=== PATIENT | female | born 1965 | race African-American/Black ===

== ENCOUNTER → 2018-08-25 11:09 | Outpatient (CLI) | payer OTHER, SELFPAY ==
[2018-08-25 11:20] LABS: Bacteria Urine None Seen; RBC Urine None Seen (0-5/HPF)
[2018-08-25 12:11] LABS: Appearance Urine UA CLEAR; Bilirubin Urine UA NEGATIVE (NEGATIVE); Color Urine UA YELLOW; Glucose Urine UA NEGATIVE (Negative); Ketones Urine UA NEGATIVE (NEGATIVE); Leukocyte Esterase Urine UA TRACE (NEGATIVE); Nitrite Urine UA NEGATIVE (Negative); Occult Blood Urine UA NEGATIVE (Negative); Protein Urine UA NEGATIVE (Negative); Specific Gravity Urine UA 1.015 (1.000-1.035); Urobilinogen Urine UA 0.2 E.U./dL (0.2); pH Urine UA 6.5 (4.5-8.0)
[2018-08-25 12:18] LABS: Add Manual Diff / Slide Review NO; Basophils Percent Auto 0.7 % (0-2); Eosinophils Percent Auto 1.8 % (2-4); Hematocrit 41.8 % (36-46); Hemoglobin 14.2 g/dL (12.0-16.0); Lymphocytes Percent Auto 48.9 % (25-40); Mean Corpuscular HGB Conc 33.9 % (30-36); Mean Corpuscular Hemoglobin 30.7 PG (26-34); Mean Corpuscular Volume 90.7 fL (80-100); Monocytes Percent Auto 8.3 % (3-14); Neutrophils Absolute Auto 2900 /uL (1500-7000); Neutrophils Percent Auto 40.3 % (50-75); Platelet Count 329 X10^3/uL (150-400); Red Blood Cell Count 4.61 X10^6/uL (4.0-5.2); Red Cell Distribution Width 14.4 % (11.6-14.8); White Blood Cell Count 7.2 X10^3/uL (4.5-11.0)
[2018-08-25 12:23] LABS: Culture Indicated Urine Cult Not Indicated; Squamous Epithelial Cell Urine 5-10 /HPF; WBC Urine 1-5/HPF (0-5/HPF)
[2018-08-25 12:39] LABS: BUN Creatinine Ratio 21.1 (6-22); Blood Urea Nitrogen 19 mg/dL (7-17); Calcium 9.7 mg/dL (8.4-10.2); Carbon Dioxide 28 mmol/L (22-32); Chloride 100 mmol/L (98-107); Estimated Glomerular Filt Rate > 60.0 mL/min (>60); Glucose 100 mg/dL (70-100); HEMOLYSIS < 15 (0-50); Hemoglobin A1C% w Est Avg Glu 5.9 % (4.0-6.0); Sodium 143 mmol/L (137-145)
[2018-08-25 13:03] LABS: Erythrocyte Sedimentation Rate 26 MM/HR (0-20)
== END ==
PROVIDERS: Family Provider Family Medicine; PCP Family Medicine; Visit Provider Orthopaedic Surgery
DX: Z01.818 Encounter for other preprocedural examination (principal); Z01.812 Encounter for preprocedural laboratory examination; N39.9 Disorder of urinary system, unspecified; Z13.1 Encounter for screening for diabetes mellitus
CPT/HCPCS: 36415; 80048; 81001; 83036; 85025; 85651; 86140; 93005

== ENCOUNTER 2018-10-04 11:20 | Inpatient (IN) | payer OTHER, SELFPAY ==
[2018-09-18 13:54] VITALS: BMI 33.3
[2018-10-04] VITALS (22 sets, daily range): BP systolic 92–124; BP diastolic 59–87; PULSE 65–115; RESP 11–24; TEMP 36.3–36.7; O2SAT 92–100; BMI 33.3
--- NOTE | 2018-10-04 06:00 | DI.RAD.S_ITS ---
PROCEDURE: XR KNEE RT 1TO2V INDICATIONS: prosthesis placement TECHNIQUE: 2 view(s) of the knee acquired. COMPARISON: None. FINDINGS: Bones: Patient is status post knee joint arthroplasty. Hardware components are in expected positions. Visualized bony structures are intact. Soft tissues: Overlying postoperative changes are noted. IMPRESSION: Normal postoperative alignment after right total knee arthroplasty. Surgical drain overlies the operative bed. Dictated by: Oleksandr Garcia M.D. on 10/04/2018 at 19:22 Approved by: Oleksandr Garcia M.D. on 10/04/2018 at 19:22
[2018-10-04] MEDS: LACTATED RINGERS 1,000 ML 42 ML IV ×2 (14:00→17:12)
[2018-10-04] MEDS: ACETAMINOPHEN 325 MG TABLET 975 MG PO (14:12)
[2018-10-04] MEDS: CELECOXIB 200 MG CAPSULE PO (14:12)
[2018-10-04] MEDS: PREGABALIN 75 MG CAPSULE PO (14:12)
[2018-10-04] MEDS: VANCOMYCIN 1,000 MG/200 ML FROZ.PIGGY 200 MG IV (14:21)
--- NOTE | 2018-10-04 15:15 | PM.PREOP ---
Pre-operative Note Interval Note History & Physical reviewed/Exam performed by Physician: Yes Changes to H&P: No
--- NOTE | 2018-10-04 15:19 | P.OP_ITS ---
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 Unfortunately she had some subsidence of her right tibia into varus and has had ongoing problems with instability. She is brought the operating room for revision right total knee arthroplasty with the plan for tibial revision and possible total knee revision. Surgeon: Tessie Interiano Quality Assurance Consultant: Selwyn Hartman Anesthesia Type: General and Spinal Operative Notes Findings: VARUS DEFORMITY OF THE MEDIAL COMPARTMENT WITH SOME MID FLEXION INSTABILITY, APPROXIMATELY 10? OF INTERNAL ROTATION of the tibial component, good stability and good fixation of the revision tibial component. Mild tibial medial compartment softening Closure Type: primary Specimen(s): other (Cultures) Prosthetic devices, grafts, tissues, transplants, or devices: Interiano and Nephew size 1 legion tibial base plate 10 x 160 legion cemented stem 12 mm poly Applied: drain(s) Estimated Blood Loss (mL): 300 Blood products transfused: none Tourniquet time (min): 80 Procedure in detail: The patient was seen in the pre-operative area, where the patient identified the right knee as the operative site and this was marked with my initials. The patient received pre-operative antibiotics, and was taken to the operating room and placed on the operative table in the supine position. After satisfactory anesthesia, a aircraft time clerk out was performed. The right leg was encircled with a tourniquet about the proximal thigh, and the leg was prepared from the toes to the tourniquet with ChloroPrep in the usual fashion and draped with sterile drapes. A midline incision was made dissection was carried out through skin and subcutaneous tissues. The patient's previous skin incision was used and extended some proximally and distally. Two Gelpi retractors were placed. Patient's previous medial parapatellar arthrotomy was opened after inflating the tourniquet to 250 mm of mercury. Patient had moderate dense adhesions in her knee especially in the suprapatellar pouch. The adhesions were meticulously resected in order to reconstitute both the medial and lateral gutter. All abnormal scar tissue was carefully resected from around the patella in order to further mobilize the patella. Fluid was sent for intraoperative culture. Tibia was flexed up and the polyethylene component was removed without difficulty. Meticulous dissection was carried out both along the medial lateral aspect of the tibia in order to adequately mobilize the tibia pulling it anterior to the femoral component to allow removal of the tibial component. Retractors were placed around the tibia. Combination of an oscillating saw as well as multiple osteotomes was used to meticulously free the tibial component from the underlying cement mantle. A [id number] check did show that there was some mid flexion instability prior to revision. The tibial component was removed without significant difficulty once it had been meticulously freed circumferentially from the underlying cement mantle. Portion of the cement mantle was then carefully removed. A a drill and sequential reamers were used in the inter medullary canal of the tibia. It was reamed up to a size 10 x 160. 1 mm of bone was resected off of the medial aspect of the tibia and approximately 4-5 mm were resected off of the lateral aspect of the tibia. Initially the guide was pinned to the tibia we also used an extramedullary michelle it did look like the component was attempting to fall into residual varus. I used an extramedullary michelle and it did not aligned perfectly with the tibia at that point I removed the trial tibial tray and we replaced it and specifically further use the extramedullary michelle to avoid residual varus. Additionally approximately 10-15 degrees of additional external rotation were placed in the tibial component. I used a combination of hand reamers to sequentially enlarge the proximal tibia in order to allow seating of the coupling portion of the tibial tray. Trial component was inserted without difficulty. Range of motion showed normal tracking of the patella good range of motion at 0, 45, and 90? with good stability. Tourniquet was reinflated I had deflated at 1:00 a.m.. The bone was meticulously irrigated with pulse lavage and carefully dried. Tibial component was cemented into place without difficulty. Repeat trial reduction showed excellent range of motion and good stability with a 12 mm polyethylene. Final poly was placed after clearing free cement. A brief Betadine soak was performed. Wound was re-irrigated with pulse lavage. The wound was closed with interrupted Vicryl a few nonabsorbable stitches binu stitches and skin hannah. A silverio dressing was placed. Patient tolerated the procedure well she was transferred recovery room in satisfactory condition. The leg was The posterior capsule was injected with part of a mixture of 60 ml 0.25% Marcaine mixed with 20 ml Exparel for post operative pain control. The remainder of this mixture was injected into the capsule and subcutaneous tissues during cement curing. Range of motion was [0-130], with good stability throughout the range. The bone was prepared with pulsatile lavage, and dried with a sponge. Cement was applied and the final prosthetics placed. Excess cement was removed during and after cement curing. A brief Betadine soak was performed. After confirming there was no extruded cement posteriorly, the final tibial insert was placed. The knee was copiously irrigated and the tourniquet deflated. Hemostasis was obtained with the [Aquamantys system]. A drain was placed and brought out superolaterally. The capsule was closed with interrupted nonabsorbable suture. The subcutaneous layer was closed with barbed sutures, and the skin with a running 3-0 V-Lock suture and Surgical glue. An Silverio dressing was applied and the patient was taken to recovery having tolerated the procedure well. Complications: none Condition: stable Disposition: Acute Care Plan for aftercare: The patient will be maintained on a standard total knee replacement protocol with weight bearing as tolerated. The patient will receive aspirin and sequential compression devices for DVT prophylaxis. The patient will be discharged home when safe for the home environment.
[2018-10-04] MEDS: CEFAZOLIN 2 GM/100 ML FROZ.PIGGY IV ×2 (15:30→23:46)
[2018-10-04] MEDS: TRANEXAMIC ACID 1,000 MG VIAL 1000 MG INJ (15:40)
[2018-10-04] MEDS: BUPIVACAINE 0.25% W/ EPI VIAL 60 ML INJ (16:02)
[2018-10-04] MEDS: BUPIVACAINE LIPOSOME 266 MG/20 ML VIAL INJ (16:03)
--- NOTE | 2018-10-04 16:07 | SUR.OPER ---
Supine on padded OR bed. Pillow under head, arms secured on padded armboards <90 degree abduction. Safety belt across torso. Non-operative leg secured with tape over blanket over lower leg. Operative leg secured in DeMayo/Guy positioner. Foam padded brace at thigh of operative leg.
[2018-10-04] MEDS: fentaNYL 100 MCG/2 ML INJ 50 MCG IV ×2 (18:48→19:11)
[2018-10-04] MEDS: HYDROMORPHONE 2 MG INJ IV ×4 (18:59→19:22)
--- NOTE | 2018-10-04 19:41 | SUR.PHASEI ---
Block start time [1925] . Monitoring initiated and maintained throughout procedure. Oxygen and medications given per anesthesiologist instructions. Patient remained stable throughout procedure, no adverse reactions noted. Block end time [1930].
--- NOTE | 2018-10-04 19:54 | SUR.PHASEI ---
Assumed care from ARABELLA Abraham., Pt rates pain 7/10. Pt falls asleep in between care.
--- NOTE | 2018-10-04 19:58 | SUR.PHASEI ---
Gave report to Sharyn Coppola RN. Pt's pain is slowly decreasing. Prior to rescue block she was 10/10, currently restful and reporting 7/10. VSS, incentive spirometry initiated. Dressing is DCI, hemovac drain remains intact.
[2018-10-04] MEDS: OXYCODONE IR 5 MG TABLET PO (20:13)
--- NOTE | 2018-10-04 20:23 | SUR.PHASEI ---
Bladder scanned for 550mls urine, pt previously on bedpan unable to void, bldder distended, pt uncomfortable and states she needs to void. Still rates pain 7/10, though falls asleep when not talked to, sats drop down to 80's, rr drops and pt spontaneously will take deep breaths and sats return to high 90's. Pt denies any historyof sleep apnea. States she does not even snore.
--- NOTE | 2018-10-04 20:26 | PM.PROC.1 ---
Procedures Date/Time Date of procedure: 10/04/18 Time of procedure: 19:29 Nerve Block Time out performed: Yes Local anesthetic used: lidocaine 1% (w/ epi 5mL + 15mL 0.5pivacaine) Location of anesthetic used: adductor canal Amount of anesthesia used (mL): 20 Nerve blocks: femoral (adductor canal) Procedure successful: Yes Patient tolerated procedure: well Complications: none Additional comments: Adductor canal block for post operative pain management, performed post-operatively for pain 8-9/10 in PAC, s/p Revision TKA. R/B discussed. Site marked. Consent verified/signed. Standard ASA monitors. NC O2. Chloroprep. Sterile technique. Femoral A/V/N identified medial mid thigh with US. Lidocaine skin wheal. 100mm x 21g Pajunk needle advanced with in-plane US guidance. Negative aspiration. LA injected medial and lateral to femoral artery. Negative aspiration throughout. No pain, no paresthesia with injection. VSS. Tolerated well.
--- NOTE | 2018-10-04 20:29 | P.PCN_ITS ---
Procedures Date/Time Date of procedure: 10/04/18 Time of procedure: 19:29 Nerve Block Time out performed: Yes Local anesthetic used: lidocaine 1% (w/ epi 5mL + 15mL 0.5opivacaine) Location of anesthetic used: adductor canal Amount of anesthesia used (mL): 20 Nerve blocks: femoral (adductor canal) Procedure successful: Yes Patient tolerated procedure: well Complications: none Additional comments: Adductor canal block for post operative pain management, performed post-operatively for pain 8-9/10 in PAC, s/p Revision TKA. R/B discussed. Site marked. Consent verified/signed. Standard ASA monitors. NC O2. Chloroprep. Sterile technique. Femoral A/V/N identified medial mid thigh with US. Lidocaine skin wheal. 100mm x 21g Pajunk needle advanced with in- plane US guidance. Negative aspiration. LA injected medial and lateral to femoral artery. Negative aspiration throughout. No pain, no paresthesia with injection. VSS. Tolerated well.
--- NOTE | 2018-10-04 20:31 | SUR.PHASEI ---
Dr brown made aware of desatting by amy Gutierrez and report given to joe who assumed care.
--- NOTE | 2018-10-04 20:59 | SUR.PHASEI ---
pt has continued to have low spos with shallow breathing at times- RT in for consult and will continue to monitor pt in room per protocal. straight cath order obtained for urinary retention and 550 cc clear yellow urine obtained
[2018-10-04] MEDS: ONDANSETRON 4 MG/2 ML INJ IV (21:10)
[2018-10-04] MEDS: LACTATED RINGERS 1,000 ML 125 ML IV (22:30)
[2018-10-04] MEDS: METOCLOPRAMIDE 10 MG/2 ML INJ IV (22:53)
--- NOTE | 2018-10-04 23:57 | PC.NURSE ---
Pt arrived 2129. A&Ox3. 100% 2L NC. pt kept on cont pulse ox. pt had 400cc emesis. administered reglan. ordered to resume all home meds except for tylenol. This RN did not order Meloxicam and nifedipine. Please verify med with MD. call light in reach. oriented pt to the room. bed alarm active. [place] drain and HV intact. IVF infusing.
[2018-10-05] VITALS (8 sets, daily range): BP systolic 111–134; BP diastolic 61–85; PULSE 68–87; RESP 14–18; TEMP 36.3–36.8; O2SAT 93–100
[2018-10-05] MEDS: OXYCODONE IR 5 MG TABLET PO ×2 (00:46→08:03)
[2018-10-05 06:20] LABS: Hematocrit 34.8 % (36-46); Hemoglobin 11.7 g/dL (12.0-16.0)
[2018-10-05] MEDS: CEFAZOLIN 2 GM/100 ML FROZ.PIGGY IV (06:43)
[2018-10-05] MEDS: PANTOPRAZOLE 40 MG PACKET PO (06:44)
[2018-10-05] MEDS: DOCUSATE 100 MG CAPSULE PO ×2 (08:36→20:43)
[2018-10-05] MEDS: ACETAMINOPHEN 325 MG TABLET 975 MG PO ×3 (08:36→20:42)
[2018-10-05] MEDS: CYCLOBENZAPRINE 10 MG TABLET PO ×3 (08:37→20:43)
[2018-10-05] MEDS: ASPIRIN EC 81 MG TABLET PO ×2 (08:39→20:42)
[2018-10-05] MEDS: LOSARTAN 50 MG TABLET PO (08:40)
--- NOTE | 2018-10-05 09:05 | P.PN_ITS ---
Subjective Date Patient Seen: 10/05/18 Time Patient Seen: 09:01 Interval history: Hospital day 2, postop day 1 following revision right total knee arthroplasty of tibial component by Dr. Interiano. Patient states she did get some rest off and on during the night. Has been having noticeable pain and she used Dilaudid [employer] PROFESSIONAL along with oxycodone 5 mg. Her oxycodone has not been giving her good relief. Patient has not been out of bed since surgery. No PT yet. Wound Gram stain noted no organisms and occasional WBC. Exam Vital Signs (past 8 hours): - 10/05/18 05:43 10/05/18 08:00 Temperature 98.0 F 97.7 F Pulse Rate 87 72 Respiratory Rate 16 18 Blood Pressure 121/65 134/69 Pulse Oximetry 99 100 Oxygen Delivery Method Nasal Cannula Oxygen Flow Rate 2 Narrative Exam Narrative: Alert, oriented no acute distress lying in bed. Right leg. Berhane wrap and gamal dressing to right knee. No drainage or inflammation. No calf pain or swelling. Pulses symmetrical. Objective Labs Result Diagrams: 10/05/18 05:45 Labs: Laboratory Results - last 24 hr 10/05/18 05:45 Hgb 11.7 L Hct 34.8 L Assessment & Plan Post-op Postoperative Procedures Operation Date: 10/04/18 13:15 Actual Procedures Side Surgeon p Total Knee Arthroplasty Revision Right Tessie Interiano MD Plan: Patient will begin working with physical therapy today. Will increase oxycodone 10 mg for more severe pain. Also Dilaudid 2 mg IV q.3h for breakthrough pain. Restart nifedipine ER 90 mg. Anticipate possible discharge home in the next 1-2 days if stable.
--- NOTE | 2018-10-05 10:12 | PT.IIE ---
Current Diagnoses Pain due to internal orthopedic prosthetic devices, implants and grafts, subsequent encounter (10/04/18) Surgery Performed Operation Date: 10/04/18 13:15 Actual Procedures p Total Knee Arthroplasty Revision(Right) - Tessie Interiano MD Surgical History (Last Updated 09/18/18 @ 14:44 by Nunu Barragan RN) History of arthroplasty of right knee (Acute ~10/2016) History of arthroscopy of both knees (Acute) History of section (Acute) History of colonoscopy (Acute ~2012) Medical History (Last Updated 09/18/18 @ 14:44 by Nunu Barragan RN) Leblanc's cyst of knee (Acute) Oviedo's esophagus (Acute) Bronchitis (Acute) Chest pain (Acute) Cough (Acute) Diverticulitis (Acute) Dizziness (Acute) Easy bruisability (Acute) Esophageal dilatation (Acute) GERD (gastroesophageal reflux disease) (Acute) Glaucoma (Acute) HTN (hypertension) (Acute) History of kidney infection (Acute) Hyperlipidemia (Acute) IBS (irritable bowel syndrome) (Acute) IUD (intrauterine device) in place (Acute) Insomnia (Acute) Left shoulder pain (Acute) Migraines (Acute) Risk for falls (Acute) JASEN (stress urinary incontinence, female) (Acute) Seasonal allergies (Acute) Sinus congestion (Acute) Thyroiditis (Acute) Tinnitus (Acute) Varicose vein of leg (Acute) Physical Therapy Inpatient Evaluation/Re-Eval M1 PT/OT-IP Prior Functional Status Start: 10/05/18 11:00 Freq: NEEDED Status: Active Protocol: Document 10/05/18 10:12 AB (Rec: 10/05/18 11:14 AB [id number]) Medical Review Prior Functional Status Medical History Reviewed Yes Communication able to make needs known Mobility and Gait pt stated that she is independent with all mobilities and ambulatio without AD indoors but uses SPC for outdoor mobility and when doing stairs Social History Household Members spouse Living Arrangements House Number of Floors (Floors) Two Floors Number of Stairs To Enter/Railing? has not steps to enter but has 14 steps to get to main level of the house with R rail ascending Home Environment Standard Height Toilet Tub/Shower Home Equipment Front Wheel Walker Straight Cane Raised Toilet Seat w/Armrests Grab Bars In Shower Additional Social History Comment pt stated that she prefers to do sponge bathing where she sits on the RTS and sponge off . M2 PT-IP Current Condition Start: 10/05/18 11:00 Freq: NEEDED Status: Active Protocol: Document 10/05/18 10:12 AB (Rec: 10/05/18 11:14 AB [id number]) Physical Therapy Current Condition Current Condition Evaluation Date 10/05/18 Treatment Diagnosis s/p R TKA; difficulty in walking Onset Date 10/04/18 Weight Bearing Status Weight Bearing Status Weight Bear as Tolerated M3 PT-IP Subjective Start: 10/05/18 11:00 Freq: NEEDED Status: Active Protocol: Document 10/05/18 10:12 AB (Rec: 10/05/18 11:14 AB [id number]) Subjective Physical Therapy Visit Type Type Initial Evaluation Visit Start Time 10:12 Visit Stop Time 10:56 Total Visit Minutes 39 Number of TOTER Visits 0 Physical Therapy Visit Comments Patient Comments pt agreeable to do PT; c/o of a lot of pain Therapy Pain Assessment Pain When Pain Assessed At Rest Pain Present Pain Present Pain Reported Location Right Knee Intensity 8 Scale Used Numeric (1 - 10) Pain Behaviors Wincing Pain Management Techniques Apply Cold Re-positioning Timing of Activity with Medications M4 PT-IP Mobility and Gait Start: 10/05/18 11:00 Freq: NEEDED Status: Active Protocol: Document 10/05/18 10:12 AB (Rec: 10/05/18 11:14 AB [id number]) PT-Bed Mobility Assessment Supine to Sit Supine to Sit Standby Assistance Scooting Scooting to Edge of Bed Standby Assistance PT-Transfer Assessment Sit to and From Stand Sit to and from Stand Contact Guard Assistance Equipment Transfer Assistive Device Gait Belt Front Wheeled Walker Orthotic/Prosthetic Devices or Brace: No Comments Mobility Comments BP monitored. BP in supine: 117/73 BP sitting on EOB: 112 /71 BP in standin/78 after 2 min of standin/ 88 ; BP after walkin/68 BP sitting on chair at end of tx session: 102/68 informed nurse regarding BP. Pt asymptomatic during tx session and does not c/o any dizziness/lightheadedness/ neausea. Gait Assessment Gait Gait Assistance Required: Contact Guard Assist Distance (Feet) 12 Able to Maintain Weight Bearing Status Yes During Gait Assistive Devices Assistive Device Gait Belt Front Wheeled Walker Orthotic/Prosthetic Devices or Brace: No Gait Deviations General Gait Pattern Antalgic Decreased Stride Length Decreased Feet Clearance Factors Limiting Gait Function Factors Limiting Gait Function Decreased Activity Tolerance Decreased Strength Limited Range of Motion Pain Poor Balance PT-Balance Assessment Sitting Balance and Reactions Static Sitting Balance Ability Good Dynamic Sitting Balance Ability Good Standing Balance and Reactions Static Standing Balance Ability Fair Dynamic Standing Balance Ability Fair Device Used FWW M5 PT-IP Objective Assessments Start: 10/05/18 11:00 Freq: NEEDED Status: Active Protocol: Document 10/05/18 10:12 AB (Rec: 10/05/18 11:14 AB [id number]) Orientation Orientation/Cognition Level of Alertness Alert Orientation Name Age Birthday Month Date Year Day of Week Place Situation Language Function Ability No Deficits Noted Safety Awareness Understands Safety Issues Memory Description No Deficits Noted Gross Range of Motion Lower Extremity ROM Assessment Right Impaired Impairments R knee flexion ~ 50 deg Strength Lower Extremity Strength Assessment Right Impaired Knee 3+/5 Coordination Assessment Gross Coordination Gross Coordination WNL Sensation Assessment Sensation Gross Sensation WNL Muscle Tone Muscle Tone WNL Yes M6 PT-IP Treatment Start: 10/05/18 11:00 Freq: NEEDED Status: Active Protocol: Document 10/05/18 10:12 AB (Rec: 10/05/18 11:14 AB [id number]) Physical Therapy Treatment Exercises Exercises Quad Sets Heel Slides Education Education Provided Precautions Weight Bearing Status Post-Op Packet Safety M7 PT-IP Assessment and Plan Start: 10/05/18 11:00 Freq: NEEDED Status: Active Protocol: Document 10/05/18 10:12 AB (Rec: 10/05/18 11:14 AB [id number]) PT Summary Assessment and Plan Potential Rehabilitation Potential Good Status of Condition at Evaluation Evolving Summary Impairments Pain ROM Strength Balance Bed Mobility Transfers Gait Activity Tolerance Assessment Summary pt requiring one person assist with mobility but c/o / affecting mobility. pt will likely progress during hospital stay. pt plans to go home and spouse will assist pt at home. pt is set up for outpt PT> Goals Bed Mobility Goal Independent Transfer Goal Independent Front Wheeled Walker Gait Goal Independent Front Wheel Walker Gait Distance 125 Other Goals up/down 14 steps with R rail ascending SBA Days to Meet Goals 3 Frequency of Treatment Frequency Of Treatment Twice a Day Treatment Plan Physical Therapy Treatment Plan Bed Mobility Training Transfer Training Gait Training Therapeutic Exercise Balance Retraining Post Op Education Discharge Planning Hot or Cold Pack Neuromuscular Re-ed Coordination Retraining Manual Therapy Recommendations To Nursing Amount of Assist Needed 1 Person Assist Discharge Recommendations PT Discharge Recommendations Home with Assistance Outpatient PT
[2018-10-05] MEDS: OXYCODONE IR 10 MG TABLET PO ×4 (11:32→20:41)
--- NOTE | 2018-10-05 14:13 | PT.IPTN ---
Current Diagnoses Pain due to internal orthopedic prosthetic devices, implants and grafts, subsequent encounter (10/04/18) Surgery Performed Operation Date: 10/04/18 13:15 Actual Procedures p Total Knee Arthroplasty Revision(Right) - Tessie Interiano MD Physical Therapy Treatment Note M2 PT-IP Current Condition Start: 10/05/18 11:00 Freq: NEEDED Status: Active Protocol: Document 10/05/18 10:12 AB (Rec: 10/05/18 11:14 AB [id number]) Physical Therapy Current Condition Current Condition Evaluation Date 10/05/18 Treatment Diagnosis s/p R TKA; difficulty in walking Onset Date 10/04/18 Weight Bearing Status Weight Bearing Status Weight Bear as Tolerated M3 PT-IP Subjective Start: 10/05/18 11:00 Freq: NEEDED Status: Active Protocol: Document 10/05/18 14:15 GGD (Rec: 10/05/18 15:12 GGD [id number]) Subjective Physical Therapy Visit Type Type Treatment Note Visit Start Time 13:45 Visit Stop Time 14:15 Total Visit Minutes 30 Number of CLOUD AUTOMATION TESTER Visits 1 Physical Therapy Visit Comments Patient Comments Pt states she still having a lot of pain. Therapy Pain Assessment Pain When Pain Assessed At Rest Pain Present Pain Present Pain Reported Location Right Knee Intensity 8 Scale Used Numeric (1 - 10) M4 PT-IP Mobility and Gait Start: 10/05/18 11:00 Freq: NEEDED Status: Active Protocol: Document 10/05/18 14:15 GGD (Rec: 10/05/18 15:12 GGD [id number]) PT-Bed Mobility Assessment Supine to Sit Supine to Sit Standby Assistance Sit to Supine Sit to Supine Minimal Assistance Scooting Scooting to Edge of Bed Standby Assistance PT-Transfer Assessment Sit to and From Stand Sit to and from Stand Contact Guard Assistance Equipment Transfer Assistive Device Gait Belt Front Wheeled Walker Orthotic/Prosthetic Devices or Brace: No Comments Mobility Comments BP in supine: 104/67 BP sittin/70 BP in standing : 121/57 BP after walkin /31 in supine informed nurse regarding BP. Pt asymptomatic during tx session and does not c/o any dizziness/ lightheadedness/neausea. Gait Assessment Gait Gait Assistance Required: Contact Guard Assist Distance (Feet) 25 Able to Maintain Weight Bearing Status Yes During Gait Assistive Devices Assistive Device Gait Belt Front Wheeled Walker Orthotic/Prosthetic Devices or Brace: No Gait Deviations General Gait Pattern Antalgic Decreased Stride Length Decreased Feet Clearance Factors Limiting Gait Function Factors Limiting Gait Function Decreased Activity Tolerance Decreased Strength Limited Range of Motion Pain Poor Balance M5 PT-IP Objective Assessments Start: 10/05/18 11:00 Freq: NEEDED Status: Active Protocol: Document 10/05/18 10:12 AB (Rec: 10/05/18 11:14 AB [id number]) Orientation Orientation/Cognition Level of Alertness Alert Orientation Name Age Birthday Month Date Year Day of Week Place Situation Language Function Ability No Deficits Noted Safety Awareness Understands Safety Issues Memory Description No Deficits Noted Gross Range of Motion Lower Extremity ROM Assessment Right Impaired Impairments R knee flexion ~ 50 deg Strength Lower Extremity Strength Assessment Right Impaired Knee 3+/5 Coordination Assessment Gross Coordination Gross Coordination WNL Sensation Assessment Sensation Gross Sensation WNL Muscle Tone Muscle Tone WNL Yes M6 PT-IP Treatment Start: 10/05/18 11:00 Freq: NEEDED Status: Active Protocol: Document 10/05/18 14:15 GGD (Rec: 10/05/18 15:12 GGD [id number]) Physical Therapy Treatment Exercises Exercises Ankle Pumps Quad Sets Heel Slides Seated Knee Flexion/Extension Education Education Provided Safety M7 PT-IP Assessment and Plan Start: 10/05/18 11:00 Freq: NEEDED Status: Active Protocol: Document 10/05/18 14:15 GGD (Rec: 10/05/18 15:12 GGD [id number]) PT Summary Assessment and Plan Summary Assessment Summary Pt is improving with mobility, but C/O 8/10 pain. She had decrease in BP with mobility, but was asymptomatic. She will need to complete stair mobility before D/C home. Frequency of Treatment Frequency Of Treatment Twice a Day Treatment Plan Physical Therapy Treatment Plan Bed Mobility Training Transfer Training Gait Training Therapeutic Exercise Balance Retraining Post Op Education Discharge Planning Hot or Cold Pack Neuromuscular Re-ed Coordination Retraining Manual Therapy Recommendations To Nursing Amount of Assist Needed 1 Person Assist Discharge Recommendations PT Discharge Recommendations Home with Assistance Outpatient PT
--- NOTE | 2018-10-05 15:11 | CM.DANOTE ---
Discharge Planning/Care Management DCP: assessment: case received, EMR reviewed and met with pt and her Maximo. Introduced self and role. Pt is a 53 year old female who admitted yesterday for a scheduled Revision of R TKA (initial surgery done in October of 2016. Payer: Zachary Moeller PCP: Fredo Clements. PT did see pt today and, while she is not ready yet for d/c, the recommendation thus far is for home with assist and OUTPT PT. Pt confirms that her will be assisting her prn and that she has OUTPT PT all set up with [facility] in [place]. P: home when stable for same. will check in and follow prn for any needs that may arise. CM Discharge Assessment Start: 10/05/18 15:09 Freq: Status: Active Protocol: Document 10/05/18 15:10 ITV (Rec: 10/05/18 15:11 ITV [id number]) Discharge Planning Assessment Advance Directives? No History Provided By Patient Family Member Has Patient been admitted in last 30 No days? Prior Living Arrangements House Household Members spouse Whiteboard Updated in Patient Room with Yes name and ext. # of Director [employer] Review Status In Process Next Review Type Continued Stay Review Pre-Anesthesia Assessment Start: 09/18/18 13:54 Freq: Status: Complete Protocol: Document 09/18/18 13:54 CAB (Rec: 09/18/18 14:43 CAB [id number]) Pre-Anesthesia Assessment Diagnostic Results BMP/CMP CBC EKG Other Primary Care Provider Fredo Clements Seen Specialist in Last 12 Months Yes Specialist Seen Relief Captain General surgeon Orthopedist Primary Language Cuban Neon Tube Pumper Required No Height 162.56 cm Weight 87.997 kg Body Mass Index (BMI) 33.3 Hearing Ability Normal Visual Assist Glasses Dentition Type Teeth, Natural Present Teeth, Missing Barriers to Learning None Hx Anesthesia Reactions Yes: Nausea/vomiting post-op Hx Family Anesthesia Reaction No Hx Malignant Hyperthermia No Hx Blood Transfusions Yes: With Hx Blood Transfusion Reaction No Anesthesia Review Requested No Conductor/Engineer No alcohol intake current alcohol intake frequency holidays/special occasions only Smoking Status Never smoker Substance Use Type does not use Pain Present Pain Reported Musculoskeletal Symptoms Abnormal Gait Difficulty Walking Joint Pain History of Falling (Recent or History of No ) Patient is completely paralyzed or No completely immobile Prosthesis or Orthotic Device Cane Comment Instability, knee gives out Is patient on oxygen? No Does patient have BOCANEGRA/SOB No Hx Sleep Apnea No Currently Taking a Beta Erasmo No Can You Climb a Flight of Stairs Without No SOB Hx Chest Pain Yes: 2017, none currently Hx SOB Yes: 2017, none currently Hx Syncope or Dizziness No Anti-Coagulant Therapy No Has a Relief Captain Yes: Dr. Fontaine 2016 Cardiac Testing Yes: Stress testing 2017 Hx Pacemaker/ICD No Pacemaker Rep Required? No Cardiac Clearance Received Not Applicable Comment Cardiac clearance on RX pad 02/02/18 to med recs to be scanned to chart Diet Type At Home Low Sodium dysphagia No Bladder Pattern Nocturia Urinary Catheter Present No Hx Urinary Self Catheterization No Diabetes No: Pre-diabetes Patient No Lactating No Hx Drug Resistant Organism No Presence of External or Internal Medical No Devices Have you traveled outside the [facility] in the last 30 days? Marital Status Lives With spouse Prior Living Arrangements Apartment/Condo Number of Floors (Floors) Two Floors Number of Stairs To Enter/Railing? none Support System Spouse Does the Patient Have Assistance After Yes Surgery Patient Discharge Plan Description Return Home Comment Pt has not been advised on length of stay per surgeon's office Feels Safe in Current Environment Yes Been Physically Hurt or Threatened By a No Person in Current Environment Do you have thoughts of harming yourself None or others? Are you currently considering suicide? No Do you have a plan to hurt yourself or No Plan others? Do You Have Any Spiritual Beliefs That No May Affect Your HC Choices? Do You Have Any Cultural Practices That No May Affect Your HC Choices? Spiritual Referral None Comment Pentecostal Who Can We Speak to About Patient's Care Family, friends Identifying Code for Release of Patient Declines to issue Information Health Care Proxy/Next of Kin Maximo () Health Care Proxy Emergency Contact Name Maximo () Emergency Contact Advance Directives? No: Declines further information Power of Vinyl Dipper No PAC Instructions Durable medical equipment Medications to take/avoid Nasal antibiotic No ETOH/petroleum product on skin DOS NPO Post-op transportation Pre-surgical wash Sturdy shoes/comfortable clothes Do not bring valuables and remove jewelry
[2018-10-05] MEDS: PRAVASTATIN 20 MG TABLET PO (17:51)
[2018-10-05] MEDS: MONTELUKAST 10 MG TABLET PO (20:43)
[2018-10-05] MEDS: LORATADINE 10 MG TABLET PO (20:43)
[2018-10-05] MEDS: hydrOXYzine pamoate 25 MG CAPSULE PO (20:48)
[2018-10-05] MEDS: HYDROMORPHONE 2 MG INJ IV (22:24)
[2018-10-06] VITALS (8 sets, daily range): BP systolic 102–131; BP diastolic 54–78; PULSE 86–104; RESP 16–18; TEMP 36.3–36.8; O2SAT 93–99
[2018-10-06] MEDS: OXYCODONE IR 5 MG TABLET PO ×2 (02:36→06:44)
[2018-10-06] MEDS: PANTOPRAZOLE 40 MG TABLET PO (06:59)
--- NOTE | 2018-10-06 09:25 | P.PN_ITS ---
Subjective Date Patient Seen: 10/06/18 Time Patient Seen: 09:22 Interval history: Hospital day 3, postop day 2 following right knee revision total knee arthroplasty tibial component by Dr. Interiano. She does have Hemovac and gamal dressing. She has had limited PT. She does have 14 steps to walk up at home to bedroom and bathroom. Taking oxycodone 10 mg with better pain control. Exam Vital Signs (past 8 hours): - 10/06/18 06:37 10/06/18 07:53 Temperature 98.1 F 97.4 F L Pulse Rate 104 H 86 Respiratory Rate 18 16 Blood Pressure 124/61 103/54 L Pulse Oximetry 96 93 Oxygen Delivery Method Room Air Oxygen Flow Rate 2 Narrative Exam Narrative: Alert, oriented no acute distress sitting on the commode. Right leg. Berhane wrap and gamal dressing intact without drainage or inflammation. Hemovac with minimal drainage. No calf pain or swelling. Pulses symmetrical. Objective Labs Result Diagrams: 10/05/18 05:45 Assessment & Plan Post-op Postoperative Procedures Operation Date: 10/04/18 13:15 Actual Procedures Side Surgeon p Total Knee Arthroplasty Revision Right Tessie Interiano MD Plan: Will DC Hemovac an Berhane wrap to the knee. Continue working with PT today. Observe for pain control. Anticipate discharge home tomorrow if she is stable and cleared by PT. Patient scheduled to start PT at [facility] in 2 days.
[2018-10-06] MEDS: ACETAMINOPHEN 325 MG TABLET 975 MG PO ×3 (09:58→19:59)
[2018-10-06] MEDS: ASPIRIN EC 81 MG TABLET PO ×2 (09:59→20:00)
[2018-10-06] MEDS: NIFEDIPINE 90 MG PO (09:59)
[2018-10-06] MEDS: CYCLOBENZAPRINE 10 MG TABLET PO ×3 (09:59→20:00)
[2018-10-06] MEDS: LOSARTAN 50 MG TABLET PO (09:59)
[2018-10-06] MEDS: DOCUSATE 100 MG CAPSULE PO ×2 (09:59→20:00)
[2018-10-06] MEDS: OXYCODONE IR 10 MG TABLET PO ×2 (10:28→13:39)
--- NOTE | 2018-10-06 11:20 | PT.IPTN ---
Current Diagnoses Pain due to internal orthopedic prosthetic devices, implants and grafts, subsequent encounter (10/04/18) Surgery Performed Operation Date: 10/04/18 13:15 Actual Procedures p Total Knee Arthroplasty Revision(Right) - Tessie Interiano MD Physical Therapy Treatment Note M2 PT-IP Current Condition Start: 10/05/18 11:00 Freq: NEEDED Status: Active Protocol: Document 10/05/18 10:12 AB (Rec: 10/05/18 11:14 AB [id number]) Physical Therapy Current Condition Current Condition Evaluation Date 10/05/18 Treatment Diagnosis s/p R TKA; difficulty in walking Onset Date 10/04/18 Weight Bearing Status Weight Bearing Status Weight Bear as Tolerated M3 PT-IP Subjective Start: 10/05/18 11:00 Freq: NEEDED Status: Active Protocol: Document 10/06/18 11:20 GGD (Rec: 10/06/18 12:27 GGD [email or web address]) Subjective Physical Therapy Visit Type Type Treatment Note Visit Start Time 10:45 Visit Stop Time 11:20 Total Visit Minutes 35 Number of DIVIDEND CLERK Visits 2 Physical Therapy Visit Comments Patient Comments Pt states she feels stiff. Therapy Pain Assessment Pain When Pain Assessed At Rest Pain Present Pain Present Pain Reported Location Right Knee Intensity 8 Scale Used Numeric (1 - 10) M4 PT-IP Mobility and Gait Start: 10/05/18 11:00 Freq: NEEDED Status: Active Protocol: Document 10/06/18 11:20 GGD (Rec: 10/06/18 12:27 GGD [email or web address]) PT-Bed Mobility Assessment Supine to Sit Supine to Sit Standby Assistance Sit to Supine Sit to Supine Standby Assistance Scooting Scooting to Edge of Bed Standby Assistance PT-Transfer Assessment Sit to and From Stand Sit to and from Stand Contact Guard Assistance Equipment Transfer Assistive Device Gait Belt Front Wheeled Walker Orthotic/Prosthetic Devices or Brace: No Gait Assessment Gait Gait Assistance Required: Contact Guard Assist Distance (Feet) 140 Able to Maintain Weight Bearing Status Yes During Gait Assistive Devices Assistive Device Gait Belt Front Wheeled Walker Orthotic/Prosthetic Devices or Brace: No Gait Deviations General Gait Pattern Antalgic Decreased Stride Length Decreased Feet Clearance Factors Limiting Gait Function Factors Limiting Gait Function Decreased Activity Tolerance Decreased Strength Limited Range of Motion Pain Poor Balance M5 PT-IP Objective Assessments Start: 10/05/18 11:00 Freq: NEEDED Status: Active Protocol: Document 10/05/18 10:12 AB (Rec: 10/05/18 11:14 AB [id number]) Orientation Orientation/Cognition Level of Alertness Alert Orientation Name Age Birthday Month Date Year Day of Week Place Situation Language Function Ability No Deficits Noted Safety Awareness Understands Safety Issues Memory Description No Deficits Noted Gross Range of Motion Lower Extremity ROM Assessment Right Impaired Impairments R knee flexion ~ 50 deg Strength Lower Extremity Strength Assessment Right Impaired Knee 3+/5 Coordination Assessment Gross Coordination Gross Coordination WNL Sensation Assessment Sensation Gross Sensation WNL Muscle Tone Muscle Tone WNL Yes M6 PT-IP Treatment Start: 10/05/18 11:00 Freq: NEEDED Status: Active Protocol: Document 10/06/18 11:20 GGD (Rec: 10/06/18 12:27 GGD [email or web address]) Physical Therapy Treatment Exercises Exercises Ankle Pumps Quad Sets Heel Slides Seated Knee Flexion/Extension M7 PT-IP Assessment and Plan Start: 10/05/18 11:00 Freq: NEEDED Status: Active Protocol: Document 10/06/18 11:20 GGD (Rec: 10/06/18 12:27 GGD [email or web address]) PT Summary Assessment and Plan Summary Assessment Summary Pt able to progress her gait distance. She was SBA with bed mobility using left LE to assist right LE. Pt needs to complete stair mobility before D/C home. Frequency of Treatment Frequency Of Treatment Twice a Day Treatment Plan Physical Therapy Treatment Plan Bed Mobility Training Transfer Training Gait Training Therapeutic Exercise Balance Retraining Post Op Education Discharge Planning Hot or Cold Pack Neuromuscular Re-ed Coordination Retraining Manual Therapy Recommendations To Nursing Amount of Assist Needed 1 Person Assist Discharge Recommendations PT Discharge Recommendations Home with Assistance Outpatient PT
[2018-10-06] MEDS: hydrOXYzine pamoate 25 MG CAPSULE PO (11:30)
--- NOTE | 2018-10-06 14:40 | PT.IPTN ---
Current Diagnoses Pain due to internal orthopedic prosthetic devices, implants and grafts, subsequent encounter (10/04/18) Surgery Performed Operation Date: 10/04/18 13:15 Actual Procedures p Total Knee Arthroplasty Revision(Right) - Tessie Interiano MD Physical Therapy Treatment Note M2 PT-IP Current Condition Start: 10/05/18 11:00 Freq: NEEDED Status: Active Protocol: Document 10/05/18 10:12 AB (Rec: 10/05/18 11:14 AB [id number]) Physical Therapy Current Condition Current Condition Evaluation Date 10/05/18 Treatment Diagnosis s/p R TKA; difficulty in walking Onset Date 10/04/18 Weight Bearing Status Weight Bearing Status Weight Bear as Tolerated M3 PT-IP Subjective Start: 10/05/18 11:00 Freq: NEEDED Status: Active Protocol: Document 10/06/18 14:24 GGD (Rec: 10/06/18 14:33 GGD [email or web address]) Subjective Physical Therapy Visit Type Type Treatment Note Visit Start Time 13:40 Visit Stop Time 14:20 Total Visit Minutes 40 Number of INSTRUMENT LENS INSPECTOR Visits 3 Physical Therapy Visit Comments Patient Comments Pt states she ready to try stairs. Therapy Pain Assessment Pain When Pain Assessed At Rest Pain Present Pain Present Pain Reported Location Right Knee Intensity 8 Scale Used Numeric (1 - 10) M4 PT-IP Mobility and Gait Start: 10/05/18 11:00 Freq: NEEDED Status: Active Protocol: Document 10/06/18 14:24 GGD (Rec: 10/06/18 14:33 GGD [email or web address]) PT-Bed Mobility Assessment Supine to Sit Supine to Sit Standby Assistance Sit to Supine Sit to Supine Standby Assistance Scooting Scooting to Edge of Bed Standby Assistance PT-Transfer Assessment Sit to and From Stand Sit to and from Stand Contact Guard Assistance Equipment Transfer Assistive Device Gait Belt Front Wheeled Walker Orthotic/Prosthetic Devices or Brace: No Comments Mobility Comments Pt hook left LE under right LE for bed mobility. Gait Assessment Gait Gait Assistance Required: Contact Guard Assist Distance (Feet) 80 Able to Maintain Weight Bearing Status Yes During Gait Assistive Devices Assistive Device Gait Belt Front Wheeled Walker Orthotic/Prosthetic Devices or Brace: No Gait Deviations General Gait Pattern Antalgic Decreased Stride Length Decreased Feet Clearance Factors Limiting Gait Function Factors Limiting Gait Function Decreased Activity Tolerance Decreased Strength Limited Range of Motion Pain Poor Balance Stair Climbing Assessment Evaluation Level of Assist On Stairs Contact Guard Assistance Devices Stair Climbing Assistive Devices Straight Cane Left Railing Right Railing Technique/Endurance Stair Climbing Direction Ascend and Descend Stair Climbing Technique Step to Step Number of Steps Climbed 3 Query Text: Stair Climbing Set # Repetitions (reps) 3 M5 PT-IP Objective Assessments Start: 10/05/18 11:00 Freq: NEEDED Status: Active Protocol: Document 10/05/18 10:12 AB (Rec: 10/05/18 11:14 AB [id number]) Orientation Orientation/Cognition Level of Alertness Alert Orientation Name Age Birthday Month Date Year Day of Week Place Situation Language Function Ability No Deficits Noted Safety Awareness Understands Safety Issues Memory Description No Deficits Noted Gross Range of Motion Lower Extremity ROM Assessment Right Impaired Impairments R knee flexion ~ 50 deg Strength Lower Extremity Strength Assessment Right Impaired Knee 3+/5 Coordination Assessment Gross Coordination Gross Coordination WNL Sensation Assessment Sensation Gross Sensation WNL Muscle Tone Muscle Tone WNL Yes M6 PT-IP Treatment Start: 10/05/18 11:00 Freq: NEEDED Status: Active Protocol: Document 10/06/18 14:24 GGD (Rec: 10/06/18 14:33 GGD [email or web address]) Physical Therapy Treatment Exercises Exercises Ankle Pumps Quad Sets Seated Knee Flexion/Extension M7 PT-IP Assessment and Plan Start: 10/05/18 11:00 Freq: NEEDED Status: Active Protocol: Document 10/06/18 14:24 GGD (Rec: 10/06/18 14:33 GGD [email or web address]) PT Summary Assessment and Plan Summary Assessment Summary Pt progressing with mobilty, but C/o pain8/10. She was safe and stable with stair mobility. She is safe for home D/C when medically stable. Frequency of Treatment Frequency Of Treatment Twice a Day Treatment Plan Physical Therapy Treatment Plan Bed Mobility Training Transfer Training Gait Training Therapeutic Exercise Balance Retraining Post Op Education Discharge Planning Hot or Cold Pack Neuromuscular Re-ed Coordination Retraining Manual Therapy Recommendations To Nursing Amount of Assist Needed 1 Person Assist Discharge Recommendations PT Discharge Recommendations Home with Assistance Outpatient PT
[2018-10-06] MEDS: HYDROMORPHONE 2 MG TABLET 4 MG PO ×3 (16:36→22:36)
[2018-10-06] MEDS: MONTELUKAST 10 MG TABLET PO (20:00)
[2018-10-06] MEDS: PRAVASTATIN 20 MG TABLET PO (20:00)
[2018-10-06] MEDS: LORATADINE 10 MG TABLET PO (20:00)
[2018-10-07] MEDS: HYDROMORPHONE 2 MG TABLET 4 MG PO ×3 (01:33→13:13)
[2018-10-07 01:34] VITALS: BP 113/62; PULSE 103; RESP 16; TEMP 36.9; O2SAT 96
[2018-10-07 06:15] VITALS: RESP 16
[2018-10-07] MEDS: OXYCODONE IR 5 MG TABLET PO (06:31)
[2018-10-07] MEDS: PANTOPRAZOLE 40 MG TABLET PO (06:32)
[2018-10-07 06:36] VITALS: TEMP 37.7
[2018-10-07] MEDS: ACETAMINOPHEN 325 MG TABLET 975 MG PO (06:36)
--- NOTE | 2018-10-07 06:46 | PC.NURSE ---
Slight fever on 99.9F at 0615, gave 0900 scheduled APAP.
--- NOTE | 2018-10-07 06:47 | PC.NURSE ---
Pt RR = 22 most of shift. No distress noted, patient slept all eight hours. Tolerated IVF and IV ABOs well.
[2018-10-07 06:51] VITALS: BP 120/80; PULSE 126; RESP 16; TEMP 37.7; O2SAT 92
--- NOTE | 2018-10-07 08:45 | PM.DS.1 ---
History of Present Illness Date Patient Seen: 10/07/18 Time Patient Seen: 08:45 Chief complaint: right knee [id number] Narrative: Eight days status post revision total knee with Dr. Interiano. Doing well cleared for home with physical therapy. Pain controlled. Denies fevers chills nausea or vomiting. Discharge Providers Date of admission: 10/04/18 11:20 Primary care physician: Fredo Clements MD Consults: 10/04/18 06:00 Consult to Anesthesiology Routine Comment: Consulting Provider: Anesthesiologist Reason for consultation: Regional block for post operative pain control 10/04/18 22:17 Consult to Discharge Planning Routine Comment: Consult to Physical Therapy Evaluate & Treat Comment: Physician Instructions: postop TKA protocol Consult to Respiratory Therapy Evaluate & Treat Comment: Physician Instructions: Evaluate and treat Discharge provider: Flor Barahona MD Discharge Date: 10/07/18 Summary Discharge Diagnosis: Knee arthritis Hospital Course: Patient was admitted to the floor after her revision total knee arthroplasty with Dr. Interiano. 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 medications. The patient was advanced onto a p.o. diet. Patient mobilized with Physical therapy and Occupational therapy and was cleared for home discharge. Patient's dressing was clean dry and intact at the time of discharge. Status at Discharge Cognitive/behavioral status at discharge: Baseline Functional status at discharge: uses cane/walker Overall status at discharge: patient is progressing back to baseline Time Spent with Patient Less than 30 minutes Exam Vital Signs (past 8 hours): - 10/07/18 01:34 10/07/18 06:15 10/07/18 06:36 Temperature 98.4 F 99.9 F H Pulse Rate 103 H Respiratory Rate 16 16 Blood Pressure 113/62 Pulse Oximetry 96 10/07/18 06:51 Temperature 99.9 F H Pulse Rate 126 H Respiratory Rate 16 Blood Pressure 120/80 Pulse Oximetry 92 Fraction of Inspired Oxygen 21 Oxygen Delivery Method Room Air Oxygen Flow Rate 0 Narrative Exam Narrative: General exam alert and oriented female female in no acute distress. Sitting on the bedside eating breakfast. Respiratory exam: Nonlabored on room air Cardiovascular exam: Regular rate and rhythm Abdomen soft nontender Musculoskeletal examination: Right lower extremity with gamal dressing in place. No erythema and no swelling. Calf soft demonstrates dorsiflexion plantar flexion. Sensation intact to light touch grossly. Objective Labs Result Diagrams: 10/05/18 05:45 Discharge Plan Discharge Plan Patient Disposition: Home Discharge Med Rec/Prescriptions Prescriptions: New cyclobenzaprine 10 mg Tablet 10 mg PO TID Qty: 30 RF: 0 aspirin 81 mg Tablet,Delayed Release (Dr/Ec) 81 mg PO BID Qty: 60 RF: 0 hydromorphone 2 mg Tablet 2 mg PO Q3H PRN (Reason: Pain, Severe (7-10)) Qty: 20 RF: 0 docusate sodium 100 mg Capsule 100 mg PO BID Qty: 30 RF: 1 oxycodone 5 mg Tablet 5 mg PO Q3HR PRN (Reason: Pain, Moderate (4-6)) Qty: 40 RF: 0 hydroxyzine pamoate 25 mg Capsule 25 mg PO Q6HR PRN (Reason: Nausea) Qty: 30 RF: 0 Continued acetaminophen 500 mg Capsule 1 - 2 tab PO Q6H PRN (Reason: pain) Qty: 0 RF: 0 fluticasone [Flonase Allergy Relief] 9.9 ML spray,suspension 1 spray Intranasal QDAY Qty: 0 RF: 0 losartan 50 MG tablet 50 mg PO QDAY Qty: 0 RF: 0 meloxicam [Mobic] 7.5 MG tablet 7.5 mg PO AMCC Qty: 0 RF: 0 nifedipine [Adalat CC] 90 MG tablet extended release 90 mg PO QDAY Qty: 0 RF: 0 pantoprazole 40 MG tablet,delayed release (DR/EC) 40 mg PO QDAY Qty: 0 RF: 0 montelukast [Singulair] 10 MG tablet 10 mg PO HS Qty: 0 RF: 0 polyethylene glycol 3350 [Miralax] 119 GM powder 1 scoopful PO QDAY Qty: 0 RF: 0 cyclobenzaprine 10 mg Tablet 10 mg PO TID PRN (Reason: muscle spasms) RF: 0 benzonatate 100 mg Capsule 100 mg PO TID PRN (Reason: Cough) RF: 0 pravastatin 20 mg Tablet 20 mg PO QPM RF: 0 loratadine 10 mg Tablet 10 mg PO DAILY PRN (Reason: Seasonal allergies) RF: 0 Follow up/Referrals: Tessie Interiano MD [Physician] - (10-14 days [facility] ortho) Fredo Clements MD [Primary Care Provider] - Provider Discharge Instructions Diet: Diet as Tolerated Activity: WBAT Cold/Heat Therapy: ice prn Other treatments: keep dressing in place Skin/Wound/Dressing Care Report to your healthcare provider any signs of infection, such as:: chills, fever, night sweats, increased pain, unusual drainage and unusual redness Dressing: keep dressing in place Discharge Data Primary Care Provider: Fredo Clements Attending Provider: Tessie Interiano Admit Date/Time: 10/04/18 11:20 Quality VTE Deep Vein Thrombosis/Pulmonary Embolism Present on Admission: No
[2018-10-07 09:00] VITALS: BP 112/54; PULSE 115; RESP 18; TEMP 36.8; O2SAT 91
[2018-10-07] MEDS: DOCUSATE 100 MG CAPSULE PO (09:43)
[2018-10-07] MEDS: CYCLOBENZAPRINE 10 MG TABLET PO (09:43)
[2018-10-07] MEDS: ASPIRIN EC 81 MG TABLET PO (09:43)
[2018-10-07 09:49] VITALS: BP 95/64; PULSE 95
== END 2018-10-07 13:33 | disposition home or self-care (01) | DRG 468 ==
PROVIDERS: Orthopaedic Surgery; Admitting Provider Orthopaedic Surgery; Family Provider Family Medicine; PCP Family Medicine; Visit Provider Orthopaedic Surgery
PROC: 0SPV0JZ Removal of Synthetic Substitute from Right Knee Joint, Tibial Surface, Open Approach (ICD-10-PCS; principal; 2018-10-04 13:15)
DX: T84.022A Instability of internal right knee prosthesis, initial encounter (principal); E03.9 Hypothyroidism, unspecified; E78.5 Hyperlipidemia, unspecified; K21.9 Gastro-esophageal reflux disease without esophagitis; E66.9 Obesity, unspecified; I10 Essential (primary) hypertension
CPT/HCPCS: 64450; 73560; 85014; 85018; 87070; 87075; 87205; 94760; 97116; 97162; 97530; C1776; C9290; J0690; J1100; J1170; J2250; J2405; J2704; J2765; J3010; J3370

== ENCOUNTER 2018-10-12 16:40 | Emergency (ER) | payer OTHER, SELFPAY ==
[2018-10-04 21:51] VITALS: BMI 33.3
[2018-10-12 16:49] VITALS: BMI 28.3
[2018-10-12 16:58] VITALS: BP 119/77; PULSE 115; RESP 16; TEMP 36.9; O2SAT 98
--- NOTE | 2018-10-12 17:10 | DI.US.S_ITS ---
PROCEDURE: US PERIPH VENOUS LOW EXTREM RT INDICATIONS: RIGHT LEG PAIN 8 DAYS POST KNEE REPLACEMENT REVISION TECHNIQUE: Real-time imaging, as well as color and pulse Doppler interrogation, were performed of the lower extremity deep veins from the inguinal ligament to the popliteal fossa. COMPARISON: None. FINDINGS: The deep veins are normally compressible, and free of intraluminal thrombus. Color and pulse Doppler demonstrate normal phasic intraluminal flow. There is normal augmentation response to distal compression maneuver. IMPRESSION: 1. No evidence of deep venous thrombosis in the right lower extremity. Dictated by: Manav Fu M.D. on 10/12/2018 at 18:46 Approved by: Manav Fu M.D. on 10/12/2018 at 18:49
--- NOTE | 2018-10-12 18:09 | ED.LOWEXIN ---
HPI - Extremity Injury (Lower) General Chief Complaint: Extremity Injury, Lower Stated Complaint: Doctor wants check for blood clots Time Seen by Provider: 10/12/18 16:43 Source: patient Mode of arrival: ambulatory Limitations: no limitations History of Present Illness HPI Narrative: The patient has prior right knee replacement. Nine days ago she underwent revision of the right knee surgery. She has been mobile with a walker. She has steps at home, she has been going up and down the steps with the left leg being the lead leg. She has a varicose vein in the right leg. She has been using compression stockings for years. Over the past 3 days she has developed increased pain and swelling in the popliteal fossa and the right calf. There is no swelling to the right foot. She denies chest pain, hemoptysis or dyspnea. She does have increased discomfort with motion. There is no associated hip or lower abdominal or back pain. There is no numbness or tingling in the right leg. She has slight warmth to the leg, but no fever. Related Data Home Medications Medication Instructions Recorded Confirmed acetaminophen 1 - 2 tab PO Q6H PRN #0 11/09/16 09/18/18 fluticasone [Flonase Allergy 1 spray INTRANASAL DAILY #0 11/09/16 10/12/18 Relief] losartan 50 mg PO DAILY #0 11/09/16 10/12/18 meloxicam [Mobic] 7.5 mg PO AMCC #0 11/09/16 10/12/18 montelukast [Singulair] 10 mg PO BEDTIME #0 11/09/16 10/12/18 nifedipine [Adalat CC] 90 mg PO DAILY #0 11/09/16 10/12/18 pantoprazole 40 mg PO DAILY #0 11/09/16 10/12/18 polyethylene glycol 3350 [Miralax] 1 scoopful PO QDAY #0 11/09/16 09/18/18 benzonatate 100 mg PO TID PRN 09/18/18 09/18/18 loratadine 10 mg PO DAILY PRN 09/18/18 09/18/18 pravastatin 20 mg PO QPM 09/18/18 10/12/18 Previous Rx's Medication Instructions Recorded aspirin 81 mg PO BID #60 tab 10/07/18 cyclobenzaprine 10 mg PO TID #30 tab 10/07/18 docusate sodium 100 mg PO BID #30 cap 10/07/18 hydromorphone 2 mg PO Q3H PRN #20 tab 10/07/18 hydroxyzine pamoate 25 mg PO Q6HR PRN #30 cap 10/07/18 oxycodone 5 mg PO Q3HR PRN #40 tab 10/07/18 Allergies Allergy/AdvReac Type Severity Reaction Status Date / Time hydrocodone [From VICODIN] Allergy Severe SKIN Verified 10/12/18 16:48 CRAWLING, ITCHING, heart racing, sob Review of Systems Review of Systems ROS Unobtainable: All systems reviewed & are unremarkable except as noted in HPI and below Constitutional Denies chills, Denies fever(s), Denies lethargy and Denies weakness Cardiovascular Denies chest pain, Denies irregular heart rhythm, Denies lightheadedness, Denies palpitations, Denies dyspnea, Denies dyspnea on exertion and Denies orthopnea Respiratory Denies cough, Denies hemoptysis, Denies dyspnea, Denies dyspnea on exertion and Denies wheezing Gastrointestinal Gastrointestinal: Denies abdominal pain Musculoskeletal Denies back pain, Denies muscle weakness, Denies numbness, Denies tingling and Reports other (Right leg pain and swelling as noted in HPI.) Integumentary/Breasts Denies rash Neurologic Denies numbness, Denies tingling and Denies weakness Endocrine Denies palpitations Allergic/Immunologic Denies wheezing [facility] Medical History Leblanc's cyst of knee (Acute) Oviedo's esophagus (Acute) Bronchitis (Acute) Chest pain (Acute) Cough (Acute) Diverticulitis (Acute) Dizziness (Acute) Easy bruisability (Acute) Esophageal dilatation (Acute) GERD (gastroesophageal reflux disease) (Acute) Glaucoma (Acute) HTN (hypertension) (Acute) History of kidney infection (Acute) Hyperlipidemia (Acute) IBS (irritable bowel syndrome) (Acute) IUD (intrauterine device) in place (Acute) Insomnia (Acute) Left shoulder pain (Acute) Migraines (Acute) Risk for falls (Acute) JASEN (stress urinary incontinence, female) (Acute) Seasonal allergies (Acute) Sinus congestion (Acute) Thyroiditis (Acute) Tinnitus (Acute) Varicose vein of leg (Acute) Surgical History History of arthroplasty of right knee (Acute ~10/2016) History of arthroscopy of both knees (Acute) History of section (Acute) History of colonoscopy (Acute ~2012) Social History Smoking Status: Never smoker Exam Initial Vital Signs Initial Vital Signs: Vital Signs Temperature 98.4 F 10/12/18 16:58 Pulse Rate 115 H 10/12/18 16:58 Respiratory Rate 16 10/12/18 16:58 Blood Pressure 119/77 10/12/18 16:58 Pulse Oximetry 98 10/12/18 16:58 Const General: cooperative and well developed Nutritional Appearance: well nourished Orientation: alert, awake, oriented x3 and not confused Resp Effort & Inspection: normal respiratory effort and able to speak in complete sentences Auscultation: clear to auscultation bilaterally, no rales, no rhonchi and no wheezes Cardio Rate: regular rate Rhythm: regular rhythm Heart Sounds: S1 normal, S2 normal, no click, no gallops, no murmurs and no rubs Pulses: normal peripheral pulses GI Palpation: soft and No tender Skin General: other Other: A right knee wound VAC is in place. There is slight erythema around the site, no suggestive purulence in the bandage. Neuro General: alert, oriented x3, gait normal and no focal motor deficits Gait: gait assisted (She is using a walker.) Motor: muscle tone normal throughout Extrem General: normal to inspection and full ROM Other: Wound VAC over the right knee. Swelling in the right distal thigh, right knee/popliteal fossa, and right calf. There is edema to the right thigh, but negative Homans exam. Hematoma is noted in the right lateral thigh, with a contusion to the right medial foot. There is no ankle or foot edema. The right dorsalis pedis pulse is intact. The right foot is neurologically intact. Course Orders Ordered: ED Orders 10/12/18 17:10 US periph venous low extrem rt Stat 10/12/18 19:12 BMP [Basic Metabolic Panel] Stat CBC manual diff [Complete Blood Count MAN DIFF] Stat Vital Signs - 8 hr 10/12/18 16:58 10/12/18 18:30 10/12/18 18:47 Temperature 98.4 F 99.0 F Pulse Rate 115 H 104 H Respiratory Rate 16 24 Blood Pressure [Left Arm] 119/77 112/73 Pulse Oximetry 98 99 MDM - Extremity Injury (Lower) Lab Data Attestation: I reviewed the patient's lab results. Result diagrams: 10/12/18 19:12 10/12/18 19:12 Lab Results 10/12/18 10/12/18 Range/Units 19:12 19:12 WBC 7.7 (4.5-11.0) X10^3/uL RBC 3.32 L (4.0-5.2) X10^6/uL Hgb 10.0 L (12.0-16.0) g/dL Hct 29.8 L (36-46) % MCV 89.8 (80-100) fL MCH 30.2 (26-34) PG MCHC 33.6 (30-36) % RDW 14.2 (11.6-14.8) % Plt Count 340 (150-400) X10^3/uL Total Counted 100 Seg Neutrophils % 74.0 H (38-70) % Band Neutrophils % 1.0 L (3-7) % Lymphocytes % (Manual) 18.0 L (25-45) % Atypical Lymphs % 1.0 H ( - 0) % Monocytes % (Manual) 5.0 (2-11) % Eosinophils % (Manual) 1.0 L (2-4) % Neutrophils # (Manual) 5775 (5760-3479) /uL RBC Morphology Normal morphology Sodium 138 (137-145) mmol/L Potassium 3.7 (3.4-5.1) mmol/L Chloride 101 (98-107) mmol/L Carbon Dioxide 29 (22-32) mmol/L BUN 17 (7-17) mg/dL Creatinine 0.90 (0.52-1.04) mg/dL Estimated GFR > 60.0 (>60) mL/min BUN/Creatinine Ratio 18.9 (6-22) Glucose 114 H (70-100) mg/dL Calcium 8.9 (8.4-10.2) mg/dL Imaging Data Right leg ultrasound: Radiologist's impression: [address] [address] Ultrasound Report Signed Patient: Rohini House LMR#: [id number] : 1965Acct:[id number] Age/Sex: 53 / FDate of Service: 10/12/18 Loc: ED Accession Number: [id number] Procedure: US periph venous low extrem rt Ordering Provider: Anaid Parish D.O. PROCEDURE: US PERIPH VENOUS LOW EXTREM RT INDICATIONS: RIGHT LEG PAIN 8 DAYS POST KNEE REPLACEMENT REVISION TECHNIQUE: Real-time imaging, as well as color and pulse Doppler interrogation, were performed of the lower extremity deep veins from the inguinal ligament to the popliteal fossa. COMPARISON: None. FINDINGS: The deep veins are normally compressible, and free of intraluminal thrombus. Color and pulse Doppler demonstrate normal phasic intraluminal flow. There is normal augmentation response to distal compression maneuver. IMPRESSION: 1. No evidence of deep venous thrombosis in the right lower extremity. Dictated by: Manav Fu M.D. on 10/12/2018 at 18:46 Approved by: Manav Fu M.D. on 10/12/2018 at 18:49 MDM Narrative Medical decision making narrative: The right leg ultrasound shows no evidence of DVT. WBC count is normal. It is noted there is a 5 point drop in the hematocrit. She has the right leg swelling with contusion. She has contusion to the right lateral calf in the right medial foot. I suspect hematoma accounting for part of the swelling, in the contusion distal from the op site. There is no suggestion of infection or DVT. She is advised to follow up with her surgeon, but to return here for signs/symptoms that would suggest DVT or PE. Discharge Plan Departure Patient Disposition: Home Clinical Impression: Hematoma of right lower extremity Qualifiers: Encounter type: initial encounter Qualified Code(s): S80.11XA - Contusion of right lower leg, initial encounter Instructions: DI for Hematoma (Bruise) Activity Restrictions/Additional Instructions: Continue with your postop instructions regarding activity level. Continue using the pressure stocking. Expect the swelling to decrease over the next several days. If he has increasing pain or swelling, or if you develop chest pain or difficulty breathing return to the ER. Prescriptions: No Action acetaminophen 500 mg Capsule 1 - 2 tab PO Q6H PRN (Reason: pain) Qty: 0 RF: 0 fluticasone [Flonase Allergy Relief] 9.9 ML spray,suspension 1 spray Intranasal DAILY Qty: 0 RF: 0 losartan 50 MG tablet 50 mg PO DAILY Qty: 0 RF: 0 meloxicam [Mobic] 7.5 MG tablet 7.5 mg PO AMCC Qty: 0 RF: 0 nifedipine [Adalat CC] 90 MG tablet extended release 90 mg PO DAILY Qty: 0 RF: 0 pantoprazole 40 MG tablet,delayed release (DR/EC) 40 mg PO DAILY Qty: 0 RF: 0 montelukast [Singulair] 10 MG tablet 10 mg PO BEDTIME Qty: 0 RF: 0 polyethylene glycol 3350 [Miralax] 119 GM powder 1 scoopful PO QDAY Qty: 0 RF: 0 benzonatate 100 mg Capsule 100 mg PO TID PRN (Reason: Cough) RF: 0 pravastatin 20 mg Tablet 20 mg PO QPM RF: 0 loratadine 10 mg Tablet 10 mg PO DAILY PRN (Reason: Seasonal allergies) RF: 0 cyclobenzaprine 10 mg Tablet 10 mg PO TID Qty: 30 RF: 0 aspirin 81 mg Tablet,Delayed Release (Dr/Ec) 81 mg PO BID Qty: 60 RF: 0 hydromorphone 2 mg Tablet 2 mg PO Q3H PRN (Reason: Pain, Severe (7-10)) Qty: 20 RF: 0 docusate sodium 100 mg Capsule 100 mg PO BID Qty: 30 RF: 1 oxycodone 5 mg Tablet 5 mg PO Q3HR PRN (Reason: Pain, Moderate (4-6)) Qty: 40 RF: 0 hydroxyzine pamoate 25 mg Capsule 25 mg PO Q6HR PRN (Reason: Nausea) Qty: 30 RF: 0 Referrals: Fredo Clements MD [Primary Care Provider] -
[2018-10-12 18:30] VITALS: BP 112/73; PULSE 104; RESP 24; O2SAT 99
[2018-10-12 18:47] VITALS: TEMP 37.2
[2018-10-12 19:20] LABS: Hematocrit 29.8 % (36-46); Mean Corpuscular HGB Conc 33.6 % (30-36); Mean Corpuscular Hemoglobin 30.2 PG (26-34); Mean Corpuscular Volume 89.8 fL (80-100); Platelet Count 340 X10^3/uL (150-400); Red Blood Cell Count 3.32 X10^6/uL (4.0-5.2); Red Cell Distribution Width 14.2 % (11.6-14.8); White Blood Cell Count 7.7 X10^3/uL (4.5-11.0)
[2018-10-12 19:38] LABS: BUN Creatinine Ratio 18.9 (6-22); Blood Urea Nitrogen 17 mg/dL (7-17); Calcium 8.9 mg/dL (8.4-10.2); Carbon Dioxide 29 mmol/L (22-32); Chloride 101 mmol/L (98-107); Estimated Glomerular Filt Rate > 60.0 mL/min (>60); Glucose 114 mg/dL (70-100); HEMOLYSIS 27 (0-50); Potassium 3.7 mmol/L (3.4-5.1); Sodium 138 mmol/L (137-145)
[2018-10-12 19:44] LABS: Neutrophils Absolute Manual 5775 /uL (3000-5900); Total Cells Counted 100
[2018-10-12 19:45] LABS: RBC Morphology Normal Morphology
[2018-10-12 20:17] VITALS: BP 111/67; PULSE 100; RESP 20; TEMP 37.1; O2SAT 94
== END 2018-10-12 20:17 | disposition home or self-care (01) ==
PROVIDERS: Emergency Provider Emergency Medicine; Family Provider Family Medicine; PCP Family Medicine
DX: S80.11XA Contusion of right lower leg, initial encounter (principal)
CPT/HCPCS: 36415; 80048; 85025; 93971; 99283; 99284

== ENCOUNTER 2018-10-23 17:38 | Emergency (ER) | payer OTHER, SELFPAY ==
[2018-10-04 21:51] VITALS: BMI 33.3
--- NOTE | 2018-10-23 17:54 | ED_ITS ---
HPI - Abdominal Pain <JORDAN Hi - Last Filed: 10/23/18 21:51> General Chief Complaint: Abdominal Pain Stated Complaint: constipation, shaking Time Seen by Provider: 10/23/18 17:51 Source: patient Mode of arrival: ambulatory Limitations: no limitations History of Present Illness HPI narrative: 53-year-old female that has a history IBS and is a nonsmoker for complaint of constipation for over a week. She has recently taking pain medications due to left knee replacement surgery earlier this month. She is tolerating p.o. intake well with no nausea vomiting. She does state that she is drinking adequate fluid. She denies any abdominal pain. No urinary symptoms. No flank pain. Pain is limited to the left knee her surgery was completed. She denies any fevers or chills. She also reports that she has had periodic twitching into her bilateral hands over the past several days. She is ambulatory into the emergency room with a walker. No other concerns or complaints at this timeframe. Related Data Home Medications Medication Instructions Recorded Confirmed acetaminophen 1 - 2 tab PO Q6H PRN #0 11/09/16 09/18/18 fluticasone [Flonase Allergy 1 spray INTRANASAL DAILY #0 11/09/16 10/12/18 Relief] losartan 50 mg PO DAILY #0 11/09/16 10/12/18 meloxicam [Mobic] 7.5 mg PO AMCC #0 11/09/16 10/12/18 montelukast [Singulair] 10 mg PO BEDTIME #0 11/09/16 10/12/18 nifedipine [Adalat CC] 90 mg PO DAILY #0 11/09/16 10/12/18 pantoprazole 40 mg PO DAILY #0 11/09/16 10/12/18 polyethylene glycol 3350 [Miralax] 1 scoopful PO QDAY #0 11/09/16 09/18/18 benzonatate 100 mg PO TID PRN 09/18/18 09/18/18 loratadine 10 mg PO DAILY PRN 09/18/18 09/18/18 pravastatin 20 mg PO QPM 09/18/18 10/12/18 Previous Rx's Medication Instructions Recorded aspirin 81 mg PO BID #60 tab 10/07/18 cyclobenzaprine 10 mg PO TID #30 tab 10/07/18 docusate sodium 100 mg PO BID #30 cap 10/07/18 hydromorphone 2 mg PO Q3H PRN #20 tab 10/07/18 hydroxyzine pamoate 25 mg PO Q6HR PRN #30 cap 10/07/18 oxycodone 5 mg PO Q3HR PRN #40 tab 10/07/18 glycerin (adult) 1 suppositor [place] QD-BID PRN #10 each 10/23/18 magnesium citrate 296 ml PO .once #296 ml 10/23/18 Allergies Allergy/AdvReac Type Severity Reaction Status Date / Time hydrocodone [From VICODIN] Allergy Severe SKIN Verified 10/23/18 18:04 CRAWLING, ITCHING, heart racing, sob Review of Systems <JORDAN Hi - Last Filed: 10/23/18 21:51> Constitutional Denies chills, Denies fever(s), Denies lethargy and Denies weakness Eyes Denies change in vision, Denies eye discharge, Denies irritation and Denies loss of vision ENT Ears, Nose, Mouth, and Throat: Denies change in voice, Denies neck pain and Denies sore throat Cardiovascular Denies chest pain, Denies irregular heart rhythm, Denies lightheadedness, Denies palpitations, Denies dyspnea, Denies dyspnea on exertion and Denies orthopnea Respiratory Denies cough, Denies dyspnea, Denies dyspnea on exertion and Denies wheezing Gastrointestinal Comments: Constipation Genitourinary Denies hematuria, Denies flank pain, Denies urinary incontinence and Denies urinary urgency Musculoskeletal Denies neck pain Comments: Periodic twitching to a bilateral head Integumentary/Breasts Denies pruritus, Denies erythema, Denies rash and Denies wounds Neurologic Denies confusion, Denies loss of vision and Denies weakness Psychiatric Denies anxiety, Denies confusion, Denies depression, Denies homicidal ideation and Denies suicidal ideation Endocrine Denies palpitations Allergic/Immunologic Denies wheezing PFSH <JORDAN Hi - Last Filed: 10/23/18 21:51> Medical History Leblanc's cyst of knee (Acute) [place]'s esophagus (Acute) Bronchitis (Acute) Chest pain (Acute) Cough (Acute) Diverticulitis (Acute) Dizziness (Acute) Easy bruisability (Acute) Esophageal dilatation (Acute) GERD (gastroesophageal reflux disease) (Acute) Glaucoma (Acute) HTN (hypertension) (Acute) History of kidney infection (Acute) Hyperlipidemia (Acute) IBS (irritable bowel syndrome) (Acute) IUD (intrauterine device) in place (Acute) Insomnia (Acute) Left shoulder pain (Acute) Migraines (Acute) Risk for falls (Acute) JASEN (stress urinary incontinence, female) (Acute) Seasonal allergies (Acute) Sinus congestion (Acute) Thyroiditis (Acute) Tinnitus (Acute) Varicose vein of leg (Acute) Surgical History History of arthroplasty of right knee (Acute ~10/2016) History of arthroscopy of both knees (Acute) History of section (Acute) History of colonoscopy (Acute ~2012) Social History Smoking Status: Never smoker Social History Smoking Status: Never smoker Exam <JORDAN Hi - Last Filed: 10/23/18 21:51> Initial Vital Signs Initial Vital Signs: Vital Signs Temperature 98.5 F 10/23/18 18:04 Pulse Rate 106 H 10/23/18 18:04 Respiratory Rate 18 10/23/18 18:04 Blood Pressure 130/83 10/23/18 18:04 Pulse Oximetry 97 10/23/18 18:04 Const General: cooperative and well developed Nutritional Appearance: well nourished Orientation: alert, awake, oriented x3 and not confused [facility] Mouth: oral mucosae normal and moist mucous membranes Throat: posterior oropharynx normal Eyes Conjunctivae: conjunctivae normal Sclera: sclerae normal Pupils: PERRL EOM: EOM intact bilaterally Resp Effort & Inspection: normal respiratory effort, able to speak in complete sentences, no respiratory distress and no use of accessory muscles Auscultation: clear to auscultation bilaterally, no rales, no rhonchi and no wheezes Cardio Rate: regular rate Rhythm: regular rhythm Heart Sounds: no click, no gallops, no murmurs and no rubs Pulses: normal peripheral pulses GI Inspection: non-distended Palpation: soft, no hepatosplenomegaly, No guarding, No pulsatile mass and No tender Auscultation: normal bowel sounds General: No CVA tenderness Neuro General: alert, oriented x3, gait normal and no focal motor deficits Speech: speech normal Extrem Other: Bilateral upper extremities with full range of motion. Strength is equal bilaterally. Distal sensation is intact. Distal pulses are intact. Distal cap refill less than 2 sec. No twitching is seen on exam. <Russ Arredondo DO - Last Filed: 10/24/18 05:00> Initial Vital Signs Initial Vital Signs: Vital Signs Temperature 98.5 F 10/23/18 18:04 Pulse Rate 106 H 10/23/18 18:04 Respiratory Rate 18 10/23/18 18:04 Blood Pressure 130/83 10/23/18 18:04 Pulse Oximetry 97 10/23/18 18:04 Course <JORDAN Hi - Last Filed: 10/23/18 21:51> Orders Ordered: ED Orders 10/23/18 18:20 Complete Blood Count AUTO DIFF Stat Comprehensive Metabolic Panel Stat Lipase Stat 10/23/18 18:53 CT head/brain wo con Stat 10/23/18 18:54 XR abdomen 1V Stat Vital Signs - 8 hr 10/23/18 18:04 10/23/18 19:28 10/23/18 20:20 Temperature 98.5 F Pulse Rate 106 H 108 H 97 H Respiratory Rate 18 16 16 Blood Pressure 130/83 Blood Pressure [Left Arm] 135/76 112/70 Pulse Oximetry 97 96 97 <Russ Arredondo DO - Last Filed: 10/24/18 05:00> Orders Ordered: ED Orders 10/23/18 18:20 Complete Blood Count AUTO DIFF Stat Comprehensive Metabolic Panel Stat Lipase Stat 10/23/18 18:53 CT head/brain wo con Stat 10/23/18 18:54 XR abdomen 1V Stat Vital Signs - 8 hr 10/23/18 18:04 10/23/18 19:28 10/23/18 20:20 Temperature 98.5 F Pulse Rate 106 H 108 H 97 H Respiratory Rate 18 16 16 Blood Pressure 130/83 Blood Pressure [Left Arm] 135/76 112/70 Pulse Oximetry 97 96 97 MDM - Abdominal Pain <JORDAN Hi - Last Filed: 10/23/18 21:51> Medical Records Attestation: I reviewed the patient's medical records. Lab Data Result diagrams: 10/23/18 18:20 10/23/18 18:20 Lab Results 10/23/18 10/23/18 Range/Units 18:20 18:20 WBC 7.9 (4.5-11.0) X10^3/uL RBC 3.77 L (4.0-5.2) X10^6/uL Hgb 11.1 L (12.0-16.0) g/dL Hct 33.9 L (36-46) % MCV 90.0 (80-100) fL MCH 29.6 (26-34) PG MCHC 32.9 (30-36) % RDW 14.2 (11.6-14.8) % Plt Count 475 H (150-400) X10^3/uL Neut % (Auto) 67.5 (50-75) % Lymph % (Auto) 21.8 L (25-40) % [place] % (Auto) 6.5 (3-14) % Eos % (Auto) 3.7 (2-4) % Baso % (Auto) 0.5 (0-2) % Neut # (Auto) 5300 (1102-6423) /uL Lymph # (Auto) 1700 (2857-7269) /uL [place] # (Auto) 500 (0-900) /uL Eos # (Auto) 300 (0-450) /uL Baso # (Auto) 0 (0-100) /uL Sodium 138 (137-145) mmol/L Potassium 4.2 (3.4-5.1) mmol/L Chloride 97 L (98-107) mmol/L Carbon Dioxide 28 (22-32) mmol/L BUN 18 H (7-17) mg/dL Creatinine 1.40 H (0.52-1.04) mg/dL Estimated GFR 39.5 L (>60) mL/min BUN/Creatinine Ratio 12.9 (6-22) Glucose 103 H (70-100) mg/dL Calcium 9.2 (8.4-10.2) mg/dL Total Bilirubin 0.7 (0.2-1.3) mg/dL AST 45 H (14-36) IU/L ALT 19 (9-52) IU/L Alkaline Phosphatase 115 (38-126) U/L Total Protein 8.5 H (6.3-8.2) g/dL Albumin 4.5 (3.5-5.0) g/dL Globulin 4.0 (1.7-4.1) g/dL Albumin/Globulin Ratio 1.1 (1.0-2.8) Lipase 46 (23-300) U/L Point of care testing: Urine Dip Bedside Urine Glucose Negative Bedside Urine Bilirubin + 1 Bedside Urine Ketone - Negative Urine Specific [place] 1.020 Bedside Urine Occult Blood - Negative Bedside Urine pH 7.0 Bedside Urine Protein +/- 15 Bedside Urine Urobilinogen +/- 1mg Bedside Urine Nitrite - Negative Bedside Urine Leukocytes ++ [address] scan - head: Radiologist's impression: [address] [id number] [address] Scan Report Signed Patient: Rohini House LMR#: [id number] : 1965Acct:[id number] Age/Sex: 53 / FDate of Service: 10/23/18 Loc: ED Accession Number: [id number] Procedure: CT head/brain wo con Ordering Provider: Moreno Crockett PROCEDURE: CT HEAD/BRAIN WO CON INDICATIONS: Tremors to bilateral hands TECHNIQUE: Noncontrast 4.5 mm thick angled axial sections acquired from the foramen magnum to the vertex, with coronal and sagittal reformats. For radiation dose reduction, the following was used: automated exposure control, adjustment of mA and/or kV according to patient size. COMPARISON: None. FINDINGS: Image quality: Excellent. CSF spaces: Basal cisterns are patent. No extra-axial fluid collections. The ventricles are symmetric in size and shape. Brain: No intracranial bleeds or masses. There is cerebral volume loss for age, with resultant ventricular and sulcal prominence. There are periventricular and deep white matter chronic small vessel ischemic changes. There is intracranial internal carotid artery atherosclerosis. Skull and face: Calvarium and visualized facial bones appear intact, without suspicious lesions. Sinuses: Visualized sinuses and mastoids are clear. IMPRESSION: No acute process. Dictated by: Mariana Nieto M.D. on 10/23/2018 at 19:53 Approved by: Mariana Nieto M.D. on 10/23/2018 at 19:54 Abdominal x-ray: Radiologist's impression: [address] [address] XRay Report Signed Patient: Rohini House LMR#: [id number] : 1965Acct:[id number] Age/Sex: 53 / FDate of Service: 10/23/18 Loc: ED Accession Number: [id number] Procedure: XR abdomen 1V Ordering Provider: Moreno Crockett PROCEDURE: XR ABDOMEN 1V INDICATIONS: Constipation TECHNIQUE: One view of the abdomen acquired. COMPARISON: None. FINDINGS: Surgical changes and devices: None. Bowel: Increased quantity of stool present diffusely. Mildly prominent air- filled central bowel loops Soft tissues: No suspicious abdominal calcifications. Visualized solid organ contours appear normal in size. Bones: No suspicious bony lesions. IMPRESSION: Increased quantity of colonic stool diffusely resulting in mild prominence of air filled central bowel loops. Consider early functional obstruction pattern. Dictated by: Mariana Nieto M.D. on 10/23/2018 at 19:54 Approved by: Mariana Nieto M.D. on 10/23/2018 at 19:56 MDM Narrative Medical decision making narrative: CBC was obtained and shows mild anemia otherwise no elevated white count and is unremarkable. Chem panel shows decreased GFR of 35 and elevated creatinine of 1.4. Patient states she is drinking enough fluids. She is encouraged to drink adequate amounts of fluids to ensure that she is flushing kidneys well. X-ray of the abdomen shows a moderate amount of stool loading. No other acute findings. Due to complaints of twitching into the bilateral hands CT of the head was obtained was negative for any acute findings. She is prescribed magnesium citrate for constipation a long with glycerin suppositories. Follow up with primary care provider. Urinalysis was positive forLeukocyte esterase however patient is not having any urinary symptoms will hold off treatment for now. Return emergency room for any worsening symptoms. <Russ Arredondo DO - Last Filed: 10/24/18 05:00> Lab Data Lab Results 10/23/18 10/23/18 Range/Units 18:20 18:20 WBC 7.9 (4.5-11.0) X10^3/uL RBC 3.77 L (4.0-5.2) X10^6/uL Hgb 11.1 L (12.0-16.0) g/dL Hct 33.9 L (36-46) % MCV 90.0 (80-100) fL MCH 29.6 (26-34) PG MCHC 32.9 (30-36) % RDW 14.2 (11.6-14.8) % Plt Count 475 H (150-400) X10^3/uL Neut % (Auto) 67.5 (50-75) % Lymph % (Auto) 21.8 L (25-40) % [place] % (Auto) 6.5 (3-14) % Eos % (Auto) 3.7 (2-4) % Baso % (Auto) 0.5 (0-2) % Neut # (Auto) 5300 (5386-3977) /uL Lymph # (Auto) 1700 (3209-9054) /uL [place] # (Auto) 500 (0-900) /uL Eos # (Auto) 300 (0-450) /uL Baso # (Auto) 0 (0-100) /uL Sodium 138 (137-145) mmol/L Potassium 4.2 (3.4-5.1) mmol/L Chloride 97 L (98-107) mmol/L Carbon Dioxide 28 (22-32) mmol/L BUN 18 H (7-17) mg/dL Creatinine 1.40 H (0.52-1.04) mg/dL Estimated GFR 39.5 L (>60) mL/min BUN/Creatinine Ratio 12.9 (6-22) Glucose 103 H (70-100) mg/dL Calcium 9.2 (8.4-10.2) mg/dL Total Bilirubin 0.7 (0.2-1.3) mg/dL AST 45 H (14-36) IU/L ALT 19 (9-52) IU/L Alkaline Phosphatase 115 (38-126) U/L Total Protein 8.5 H (6.3-8.2) g/dL Albumin 4.5 (3.5-5.0) g/dL Globulin 4.0 (1.7-4.1) g/dL Albumin/Globulin Ratio 1.1 (1.0-2.8) Lipase 46 (23-300) U/L Point of care testing: Urine Dip Bedside Urine Glucose Negative Bedside Urine Bilirubin + 1 Bedside Urine Ketone - Negative Urine Specific [place] 1.020 Bedside Urine Occult Blood - Negative Bedside Urine pH 7.0 Bedside Urine Protein +/- 15 Bedside Urine Urobilinogen +/- 1mg Bedside Urine Nitrite - Negative Bedside Urine Leukocytes ++ 125 Esterase Discharge Plan Departure Patient Disposition: Home Clinical Impression: Constipation Qualifiers: Constipation type: unspecified constipation type Qualified Code(s): K59.00 - Constipation, unspecified Discharge Date/Time: 10/23/18 20:26 Interventions: ED Discharge Assessment Last Done: 10/23/18 20:29 Instructions: DI for Constipation Activity Restrictions/Additional Instructions: Laboratory results show mild anemia and decreased kidney function. Otherwise they are unremarkable. X-ray of the abdomen shows moderate stool loading indicating constipation. You are prescribed magnesium citrate and glycerin suppositories use as directed. EnNsure you are drinking plenty of fluids. Follow up with primary care provider next few days for re-evaluation. CT of the head was obtained was negative for any acute findings. Prescriptions: New magnesium citrate solution 296 ml PO .once Qty: 296 RF: 0 glycerin (adult) suppository 1 suppositor AK QD-BID PRN (Reason: constipation) Qty: 10 RF: 0 No Action acetaminophen 500 mg Capsule 1 - 2 tab PO Q6H PRN (Reason: pain) Qty: 0 RF: 0 fluticasone [Flonase Allergy Relief] 9.9 ML spray,suspension 1 spray Intranasal DAILY Qty: 0 RF: 0 losartan 50 MG tablet 50 mg PO DAILY Qty: 0 RF: 0 meloxicam [Mobic] 7.5 MG tablet 7.5 mg PO AMCC Qty: 0 RF: 0 nifedipine [Adalat CC] 90 MG tablet extended release 90 mg PO DAILY Qty: 0 RF: 0 pantoprazole 40 MG tablet,delayed release (DR/EC) 40 mg PO DAILY Qty: 0 RF: 0 montelukast [Singulair] 10 MG tablet 10 mg PO BEDTIME Qty: 0 RF: 0 polyethylene glycol 3350 [Miralax] 119 GM powder 1 scoopful PO QDAY Qty: 0 RF: 0 benzonatate 100 mg Capsule 100 mg PO TID PRN (Reason: Cough) RF: 0 pravastatin 20 mg Tablet 20 mg PO QPM RF: 0 loratadine 10 mg Tablet 10 mg PO DAILY PRN (Reason: Seasonal allergies) RF: 0 cyclobenzaprine 10 mg Tablet 10 mg PO TID Qty: 30 RF: 0 aspirin 81 mg Tablet,Delayed Release (Dr/Ec) 81 mg PO BID Qty: 60 RF: 0 hydromorphone 2 mg Tablet 2 mg PO Q3H PRN (Reason: Pain, Severe (7-10)) Qty: 20 RF: 0 docusate sodium 100 mg Capsule 100 mg PO BID Qty: 30 RF: 1 oxycodone 5 mg Tablet 5 mg PO Q3HR PRN (Reason: Pain, Moderate (4-6)) Qty: 40 RF: 0 hydroxyzine pamoate 25 mg Capsule 25 mg PO Q6HR PRN (Reason: Nausea) Qty: 30 RF: 0 Referrals: Fredo Clements MD [Primary Care Provider] - <Russ Arredondo DO - Last Filed: 10/24/18 05:00> Cosign ED Attending Ciroature Attestation: I was immediately available in the department for consultation. Documentation has been reviewed. I agree with assessment and plan.
[2018-10-23 18:04] VITALS: BP 130/83; PULSE 106; RESP 18; TEMP 36.9; O2SAT 97; BMI 27.4
--- NOTE | 2018-10-23 18:45 | PC.NURSE ---
skin noted to be scaly dry, mucous membrane dry. lethargic, but responds appropriately, moving all ext. spouse at bs.
--- NOTE | 2018-10-23 18:53 | DI.CT.S_ITS ---
PROCEDURE: CT HEAD/BRAIN WO CON INDICATIONS: Tremors to bilateral hands TECHNIQUE: Noncontrast 4.5 mm thick angled axial sections acquired from the foramen magnum to the vertex, with coronal and sagittal reformats. For radiation dose reduction, the following was used: automated exposure control, adjustment of mA and/or kV according to patient size. COMPARISON: None. FINDINGS: Image quality: Excellent. CSF spaces: Basal cisterns are patent. No extra-axial fluid collections. The ventricles are symmetric in size and shape. Brain: No intracranial bleeds or masses. There is cerebral volume loss for age, with resultant ventricular and sulcal prominence. There are periventricular and deep white matter chronic small vessel ischemic changes. There is intracranial internal carotid artery atherosclerosis. Skull and face: Calvarium and visualized facial bones appear intact, without suspicious lesions. Sinuses: Visualized sinuses and mastoids are clear. IMPRESSION: No acute process. Dictated by: Mariana Nieto M.D. on 10/23/2018 at 19:53 Approved by: Mariana Nieto M.D. on 10/23/2018 at 19:54
--- NOTE | 2018-10-23 18:54 | DI.RAD.S_ITS ---
PROCEDURE: XR ABDOMEN 1V INDICATIONS: Constipation TECHNIQUE: One view of the abdomen acquired. COMPARISON: None. FINDINGS: Surgical changes and devices: None. Bowel: Increased quantity of stool present diffusely. Mildly prominent air-filled central bowel loops Soft tissues: No suspicious abdominal calcifications. Visualized solid organ contours appear normal in size. Bones: No suspicious bony lesions. IMPRESSION: Increased quantity of colonic stool diffusely resulting in mild prominence of air filled central bowel loops. Consider early functional obstruction pattern. Dictated by: Mariana Nieto M.D. on 10/23/2018 at 19:54 Approved by: Mariana Nieto M.D. on 10/23/2018 at 19:56
[2018-10-23 19:03] LABS: Add Manual Diff / Slide Review NO; Basophils Absolute Auto 0 /uL (0-100); Basophils Percent Auto 0.5 % (0-2); Eosinophils Absolute Auto 300 /uL (0-450); Eosinophils Percent Auto 3.7 % (2-4); Hematocrit 33.9 % (36-46); Hemoglobin 11.1 g/dL (12.0-16.0); Lymphocytes Absolute Auto 1700 /uL (1100-4500); Lymphocytes Percent Auto 21.8 % (25-40); Mean Corpuscular HGB Conc 32.9 % (30-36); Mean Corpuscular Hemoglobin 29.6 PG (26-34); Monocytes Absolute Auto 500 /uL (0-900); Monocytes Percent Auto 6.5 % (3-14); Neutrophils Absolute Auto 5300 /uL (1500-7000); Neutrophils Percent Auto 67.5 % (50-75); Platelet Count 475 X10^3/uL (150-400); Red Blood Cell Count 3.77 X10^6/uL (4.0-5.2); Red Cell Distribution Width 14.2 % (11.6-14.8); White Blood Cell Count 7.9 X10^3/uL (4.5-11.0)
[2018-10-23 19:08] LABS: Alanine Aminotransferase 19 IU/L (9-52); Albumin 4.5 g/dL (3.5-5.0); Albumin Globulin Ratio 1.1 (1.0-2.8); Alkaline Phosphatase 115 U/L (38-126); Aspartate Aminotransferase 45 IU/L (14-36); BUN Creatinine Ratio 12.9 (6-22); Bilirubin Total 0.7 mg/dL (0.2-1.3); Blood Urea Nitrogen 18 mg/dL (7-17); Calcium 9.2 mg/dL (8.4-10.2); Carbon Dioxide 28 mmol/L (22-32); Chloride 97 mmol/L (98-107); Estimated Glomerular Filt Rate 39.5 mL/min (>60); Glucose 103 mg/dL (70-100); HEMOLYSIS < 15 (0-50); Lipase 46 U/L (23-300); Potassium 4.2 mmol/L (3.4-5.1); Sodium 138 mmol/L (137-145); Total Protein 8.5 g/dL (6.3-8.2)
[2018-10-23 19:28] VITALS: BP 135/76; PULSE 108; RESP 16; O2SAT 96
[2018-10-23 20:20] VITALS: BP 112/70; PULSE 97; RESP 16; O2SAT 97
== END 2018-10-23 20:26 | disposition home or self-care (01) ==
PROVIDERS: Emergency Provider Nurse Practitioner Family; Family Provider Family Medicine; PCP Family Medicine; Referring Provider Orthopaedic Surgery
DX: K59.00 Constipation, unspecified (principal)
CPT/HCPCS: 36591; 70450; 74018; 80053; 81003; 83690; 85025; 99283; 99284

== ENCOUNTER → 2020-07-06 12:29 | Outpatient (CLI) | payer OTHER, SELFPAY ==
[2018-10-04 21:51] VITALS: BMI 33.3
--- NOTE | 2020-07-06 | DI.MG.S_ITS ---
BILATERAL DIGITAL DIAGNOSTIC MAMMOGRAM 3D/2D: 07/06/2020 CLINICAL: Breast pain. Comparison is made to exams dated: 11/23/2018 mammogram, 11/09/2017 mammogram, and 10/25/2016 mammogram - outside location. There are scattered fibroglandular elements in both breasts. There are multiple stable right axillary lymph nodes superior region seen on the mediolateral oblique view only. These correlate to the area of reported pain. No other significant masses, calcifications, or other findings are seen in either breast. IMPRESSION: INCOMPLETE: NEEDS ADDITIONAL IMAGING EVALUATION The multiple stable right axillary lymph nodes are indeterminate. An ultrasound is recommended. This exam was interpreted at Station ID: [id number]. NOTE: For mammograms, a report in lay terms will be sent to the patient. Approximately 15% of breast malignancies will not be visualized mammographically. In the management of a palpable breast mass, a negative mammogram must not discourage biopsy of a clinically suspicious lesion. SUMMARY: Targeted ultrasound is recommended for further evaluation and will be scheduled immediately following this exam. Electronically Signed By: Jay reardon/milton:07/06/2020 14:26:37 ACR BI-RADS Category 0: Incomplete [id number]
--- NOTE | 2020-07-06 | DI.US.S_ITS ---
LIMITED ULTRASOUND OF RIGHT BREAST AND AXILLA: 07/06/2020 CLINICAL: Focal right breast pain. Comparison is made to exams dated: 07/06/2020 mammogram - [facility], 11/23/2018 mammogram, 11/09/2017 mammogram, and 10/25/2016 mammogram - outside location. Color flow ultrasound of the right breast axilla was performed. Tucker scale images of the real-time examination were reviewed. There is a benign normal right axillary lymph node. This correlates to the reported pain and with mammography findings. IMPRESSION: BENIGN There is no sonographic evidence of malignancy. The normal right axillary lymph node is benign. There is no abnormality seen in the right breast to correspond with the pain in the axillary tail, however, clinical correlation is recommended. A 1 year screening mammogram is recommended. This exam was interpreted at Station ID: [id number]. Electronically Signed By: Jay reardon/milton:07/06/2020 14:28:30 letter sent: Clinical Evaluation Ultrasound BI-RADS: 2 Benign
== END ==
PROVIDERS: Family Provider Family Medicine; PCP Family Medicine; Referring Provider Family Medicine; Visit Provider Family Medicine
DX: R92.8 Other abnormal and inconclusive findings on diagnostic imaging of breast (principal); N64.4 Mastodynia
CPT/HCPCS: 76642; 77066; G0279

== ENCOUNTER → 2021-09-13 16:01 | Outpatient (CLI) | payer OTHER, SELFPAY ==
[2018-10-04 21:51] VITALS: BMI 33.3
--- NOTE | 2021-09-13 16:02 | DI.MG.S_ITS ---
BILATERAL DIGITAL SCREENING MAMMOGRAM 3D/2D WITH CAD: 09/13/2021 CLINICAL: Routine screening. Comparison is made to exams dated: 07/06/2020 ultrasound, 07/06/2020 mammogram - [facility], and 11/23/2018 mammogram - outside location. There are scattered fibroglandular elements in both breasts. Current study was also evaluated with a Computer Aided Detection (CAD) system. No significant masses, calcifications, or other findings are seen in either breast. There has been no significant interval change. IMPRESSION: NEGATIVE There is no mammographic evidence of malignancy. A 1 year screening mammogram is recommended. This exam was interpreted at Station ID: [id number]. NOTE: For mammograms, a report in lay terms will be sent to the patient. Approximately 15% of breast malignancies will not be visualized mammographically. In the management of a palpable breast mass, a negative mammogram must not discourage biopsy of a clinically suspicious lesion. Electronically Signed By: Gui Howard M.D., jr/milton:09/13/2021 16:47:13 letter sent: Normal Exam ACR BI-RADS Category 1: Negative [id number]
== END ==
PROVIDERS: Family Provider Family Medicine; PCP Family Medicine; Referring Provider Family Medicine; Visit Provider Family Medicine
DX: Z12.31 Encounter for screening mammogram for malignant neoplasm of breast (principal)
CPT/HCPCS: 77063; 77067